=== PATIENT | female | born 1995 | race Caucasian/White ===

== ENCOUNTER → 2016-09-16 | Outpatient (CLI) | payer OTHER ==
[~2016-09-16] MED LIST: ACET-1311 PO; BCPILLS PO; DIPH-437 PO; HYDR-5688 PO; PANT40TA PO; PRENTAB26 PO; SULF800T23 PO
--- NOTE | 2016-09-16 15:14 | DIAGNOSTIC IMAGING REPORT ---
CT ANGIOGRAPHY OF THE CHEST, PULMONARY EMBOLUS PROTOCOL CLINICAL HISTORY: Dizziness. Tachycardia. COMPARISON STUDY: Chest CT August 18, 2011 and chest radiograph March 11, 2014. TECHNIQUE: Following IV administration of 94 mL of Optiray-320, helical axial images of the chest were obtained utilizing the pulmonary embolus protocol. Maximal intensity projections and sagittal and coronal reformats were viewed on an independent 3D workstation. IV contrast was administered without complication. CT DOSE: 386.86 mGy.cm FINDINGS: No pulmonary emboli are identified. The size of the heart is normal. There is no evidence for thoracic aortic dissection. No enlarged thoracic lymph nodes are present. Central airways are patent. There is no consolidation. Scattered pulmonary nodules are unchanged since a CT of August 18, 2011. The largest is a 5 mm right middle lobe nodule shown on image 138 of 278. 5 mm right lower lobe nodule on image 120 of 278 is also unchanged. There is no pneumothorax or pleural effusion. Bony thorax and upper abdomen are unremarkable. IMPRESSION: 1. No pulmonary emboli identified. 2. No acute intrathoracic findings. 3. Several pulmonary nodules which are unchanged since CT of August 18, 2011 consistent with a benign etiology. Electronically signed by: Kvng Dumont M.D. 09/16/2016 3:12 PM Dictated Date/Time: 09/16/2016 3:02 PM
== END | disposition home or self-care (01) ==
LOC: C.CTS 14:44
PROVIDERS: ATTEND Nurse Practitioner
DX: R42 Dizziness and giddiness (principal); R00.0 Tachycardia, unspecified; R91.8 Other nonspecific abnormal finding of lung field

== ENCOUNTER → 2016-09-16 | Outpatient (CLI) | payer OTHER ==
[2016-09-16 12:10] LABS: BASO % 0.2 %; BASO ABS # 0.02 K/uL (0-0.2); COMPLETE YES; EOS % 3.1 %; HEMATOCRIT 40.6 % (37-47); IG% 0.2 %; LYMPH % 32.1 %; LYMPH ABS # 3.09 K/uL (1.2-3.4); MEAN CORPUSCULAR HEMOGLOBIN 29.7 pg (25-34); MEAN CORPUSCULAR HGB CONC 34.5 g/dl (32-36); MONO % 5.5 %; NEUT % 58.9 %; PLATELET COUNT 335 K/uL (130-400); RED BLOOD COUNT 4.72 M/uL (4.2-5.4); WHITE BLOOD COUNT 9.64 K/uL (4.8-10.8)
[2016-09-16 12:17] LABS: MANUAL MICROSCOPIC REQUIRED? NO; REVIEW REQ? NO; URINE APPEARANCE CLEAR (CLEAR); URINE BILIRUBIN NEG (NEG); URINE COLOR YELLOW; URINE EPITHELIAL CELL AUTO >30 /lpf (0-5); URINE NITRITE NEG (NEG); URINE PH 6.5 (4.5-7.5); URINE SPECIFIC GRAVITY 1.028 (1.000-1.030); UROBILINOGEN NEG (NEG)
[2016-09-16 12:21] LABS: PROTHROMBIN TIME (PATIENT) 10.7 SECONDS (9.0-12.0)
[2016-09-16 14:09] LABS: PARTIAL THROMBOPLASTIN RATIO 1.2
[2016-09-16 19:17] LABS: ALB/GLOB RATIO 1.2 (0.9-2); ALKALINE PHOSPHATASE 85 U/L (45-117); ALT/SGPT 54 U/L (12-78); AST/SGOT 27 U/L (15-37); BLOOD UREA NITROGEN 9 mg/dl (7-18); BUN/CREATININE RATIO 9.8 (10-20); CALCIUM 9.3 mg/dl (8.5-10.1); CARBON DIOXIDE 27 mmol/L (21-32); CHLORIDE 107 mmol/L (98-107); CREATININE 0.88 mg/dl (0.60-1.20); FERRITIN 53.6 ng/ml (8.0-388.0); GLUCOSE 73 mg/dl (70-99); POTASSIUM 3.9 mmol/L (3.5-5.1); SODIUM 140 mmol/L (136-145); TOTAL IRON BINDING CAPACITY 414 mcg/dl (250-450)
[2016-09-16 19:21] LABS: THYROID STIMULATING HORMONE 0.765 uIu/ml (0.300-4.500)
== END | disposition home or self-care (01) ==
LOC: C.LABBFT 11:04
PROVIDERS: ATTEND Nurse Practitioner
DX: T14.8 Other injury of unspecified body region (principal); X58.XXXA Exposure to other specified factors, initial encounter; R53.83 Other fatigue

== ENCOUNTER 2016-11-05 21:01 | Emergency (ER) | payer OTHER ==
[~2016-11-05] VITALS: Ht 162.6 cm; Wt 97.4 kg
[~2016-11-05 21:01] MED LIST changes: -ACET-1311 PO; -BCPILLS PO; -HYDR-5688 PO; -PANT40TA PO; -SULF800T23 PO
[2016-11-05 21:14] VITALS: TEMP 36.7; Ht 162.6 cm; Wt 97.4 kg
[2016-11-05] MEDS ORDERED: ONDANSETRON INJ 2 MG/ML 2 ML VIAL IV STA (21:49)
[2016-11-05] MEDS ORDERED: MoRPHine SULFATE 4 MG/ML 1 ML CARP\\VIAL IV ONE (22:00)
[2016-11-05] MEDS ORDERED: SODIUM CHLORIDE 0.9% 1000ML 1,000 ML IV ONE (22:00)
[2016-11-05] MEDS ORDERED: OPTIRAY 320 IV PRN (22:00)
[2016-11-05 22:12] LABS: MANUAL MICROSCOPIC REQUIRED? YES; URINE APPEARANCE TURBID (CLEAR); URINE BILIRUBIN NEG (NEG); URINE COLOR RED; URINE NITRITE NEG (NEG); UROBILINOGEN NEG (NEG)
[2016-11-05 22:15] LABS: REVIEW REQ? NO
[2016-11-05 22:18] LABS: URINE BACTERIA 1+ (NEG); URINE RBC >30 /hpf (0-4); ZZUR CULT IF INDIC CLEAN CATCH YES
[2016-11-05 22:38] LABS: BASO % 0.4 %; BASO ABS # 0.03 K/uL (0-0.2); COMPLETE YES; EOS % 3.5 %; IG% 0.2 %; LYMPH % 45.1 %; LYMPH ABS # 3.61 K/uL (1.2-3.4); MEAN CORPUSCULAR HEMOGLOBIN 27.7 pg (25-34); MEAN CORPUSCULAR HGB CONC 32.2 g/dl (32-36); MEAN PLATELET VOLUME 8.9 fL (7.4-10.4); MONO % 4.6 %; NEUT % 46.2 %; PLATELET COUNT 357 K/uL (130-400); RED BLOOD COUNT 4.77 M/uL (4.2-5.4); WHITE BLOOD COUNT 8.01 K/uL (4.8-10.8)
[2016-11-05 22:57] LABS: BUN/CREATININE RATIO 19.3 (10-20); CREATININE 0.81 mg/dl (0.60-1.20); POTASSIUM 3.6 mmol/L (3.5-5.1)
[2016-11-05 23:00] LABS: ALB/GLOB RATIO 1.2 (0.9-2)
[2016-11-05 23:14] LABS: CALCIUM 8.8 mg/dl (8.5-10.1)
[2016-11-06] MEDS ORDERED: SULF800T23 PO (01:48)
[2016-11-06 01:51] VITALS: BP 99/78; PULSE 77; O2SAT 98
[2016-11-06] MEDS ORDERED: SEPTRA DS HOME PACK 1 EA VIAL PO ONE (02:00)
[2016-11-06] MEDS ORDERED: NORCO 5/325MG HOME PACK PO ONE (02:00)
--- NOTE | 2016-11-06 03:39 | EMERGENCY ROOM VISIT NOTE ---
History First contact with patient: 21:35 Chief Complaint: ABDOMINAL PAIN Stated Complaint: BLOOD IN URINE, INDIGESTION, BLOOD IN STOOL Nursing Triage Summary: abdominal pain, blood in stool and urine History of Present Illness The patient is a 21 year old female who presents to the Emergency Room with complaints of abdominal pain for the past 3 hours. The patient states that she has had a history of gastritis and peptic ulcer disease. She has had waxing and waning symptoms of this over the past few weeks. She ate a slice of pizza tonight, and immediately had epigastric and right upper quadrant abdominal pain. She did vomit once at home, which sometimes will help her when she has episodes like this. She states this vomiting did not help her symptoms, and now she has right lower quadrant pain as well. She has not had fever or chills. She does not take NSAIDs because of her peptic ulcer history, and thus has taken nothing for her discomfort. She denies chance of . Secondarily the patient reports hematuria for the past 3 or 4 days. She does have some dysuria with this. She rates her overall discomfort a 9/10. She does not report other aggravating or alleviating factors. Review of Systems More than 10 systems were reviewed and otherwise negative with the exception of history of present illness. Past Medical/Surgical History Medical Problems: (1) Abdominal cramping affecting , antepartum (2) dehydration in (3) Gastritis (4) Supervision of other normal Family History FH: hypertension FH: lung disease Social History Smoking Status: Current Every Day Smoker Alcohol Use: none Drug Use: none Marital Status: single Housing Status: lives with family Occupation Status: employed Current/Historical Medications Scheduled Sulfa/Trimethoprim (Bactrim Ds 800MG/160MG), 1 TAB PO BID Allergies Coded Allergies: Ibuprofen (Verified Adverse Reaction, Unknown, ulcer from, 04/09/16) Physical Exam Vital Signs Date Time Temp Pulse Resp B/P (MAP) Pulse Ox O2 Delivery O2 Flow Rate FiO2 11/06/16 01:51 77 18 99/78 98 Room Air 11/06/16 01:12 80 16 95/66 97 Room Air 11/05/16 23:11 86 18 110/67 97 Room Air 11/05/16 22:35 99 16 115/69 97 Room Air 11/05/16 21:33 111 11/05/16 21:29 107 11/05/16 21:14 36.7 18 111/70 96 Room Air Pain Rating (0-10): 5.0 Physical Exam VITALS: Vitals are noted on the nurse's note and reviewed by myself. Vital signs stable. GENERAL: Well-developed, well-nourished, white female, who is in no acute distress and resting comfortably. Patient is cooperative with the examination. HEAD: Normocephalic atraumatic. EARS: External ear normal. External auditory canals clear, tympanic membranes pearly nguyen without erythema or effusion bilaterally. EYES: Pupils equal round and reactive to light and accommodation. Conjunctivae without injection, sclerae without icterus. Extraocular movements intact. NOSE: Patent, turbinates without inflammation or discharge. MOUTH: Mucous membranes moist. Tonsils are not enlarged. Pharynx without erythema, blood, or exudate. Uvula midline. Airway patent. NECK: Supple without nuchal rigidity. No lymphadenopathy. No thyromegaly. Cervical spine is nontender. HEART: Regular rate and rhythm without murmurs gallops or rubs. LUNGS: Clear to auscultation bilaterally without wheezes, rales or rhonchi. No retractions or accessory muscle use. ABDOMEN: Positive normal bowel sounds x 4. Soft with right upper quadrant tenderness on palpation. There is mild right lower quadrant tenderness on palpation. No rebound or guarding. No CVA tenderness. MUSCULOSKELETAL: No muscle atrophy, erythema, or edema noted. Full range of motion without joint tenderness in all extremities. Medical Decision & Procedures ER Provider Diagnostic Interpretation: Preliminary Findings Only See Final Report For Complete Findings CT ABDOMEN & PELVIS: The liver, gallbladder, spleen, pancreas, adrenal glands and kidneys show no significant abnormality. The appendix is unremarkable. No dilated loops of bowel to suggest obstruction. Remainder of examination shows no acute inflammatory process. Preliminary Findings Only See Final Report For Complete Findings US RUQ: Increased echogenicity of the liver. Suggests fatty infiltration. Contracted gallbladder. No stones. No definite gallbladder wall thickening. No pericholecystic fluid. CBD is within normal limits. Right kidney is unremarkable. Technically limited due to overlying bowel gas. Laboratory Results 11/05/16 22:25 Red Blood Count 4.77, Mean Corpuscular Volume 86.0, Mean Corpuscular Hemoglobin 27.7, Mean Corpuscular Hemoglobin Concent 32.2, Mean Platelet Volume 8.9, Neutrophils (%) (Auto) 46.2, Lymphocytes (%) (Auto) 45.1, Monocytes (%) (Auto) 4.6, Eosinophils (%) (Auto) 3.5, Basophils (%) (Auto) 0.4, Neutrophils # (Auto) 3.70, Lymphocytes # (Auto) 3.61, Monocytes # (Auto) 0.37, Eosinophils # (Auto) 0.28, Basophils # (Auto) 0.03 11/05/16 22:25 Test 11/05/16 21:27 11/05/16 22:25 Urine Color RED Urine Appearance TURBID (CLEAR) Urine pH 7.0 (4.5-7.5) Urine Specific [place] 1.020 (1.000-1.030) Urine Protein 1+ (NEG) Urine Glucose (UA) NEG (NEG) Urine Ketones NEG (NEG) Urine Occult Blood 2+ (NEG) Urine Nitrite NEG (NEG) Urine Bilirubin NEG (NEG) Urine Urobilinogen NEG (NEG) Urine Leukocyte Esterase NEG (NEG) Urine RBC >30 /hpf (0-4) Urine WBC 10-30 /hpf (0-5) Urine Epithelial Cells >30 /lpf (0-5) Urine Bacteria 1+ (NEG) Urine Test NEG (NEG) White Blood Count 8.01 K/uL (4.8-10.8) Red Blood Count 4.77 M/uL (4.2-5.4) Hemoglobin 13.2 g/dL (12.0-16.0) Hematocrit 41.0 % (37-47) Mean Corpuscular Volume 86.0 fL (80-100) Mean Corpuscular Hemoglobin 27.7 pg (25-34) Mean Corpuscular Hemoglobin Concent 32.2 g/dl (32-36) Platelet Count 357 K/uL (130-400) Mean Platelet Volume 8.9 fL (7.4-10.4) Neutrophils (%) (Auto) 46.2 % Lymphocytes (%) (Auto) 45.1 % Monocytes (%) (Auto) 4.6 % Eosinophils (%) (Auto) 3.5 % Basophils (%) (Auto) 0.4 % Neutrophils # (Auto) 3.70 K/uL (1.4-6.5) Lymphocytes # (Auto) 3.61 K/uL (1.2-3.4) Monocytes # (Auto) 0.37 K/uL (0.11-0.59) Eosinophils # (Auto) 0.28 K/uL (0-0.5) Basophils # (Auto) 0.03 K/uL (0-0.2) RDW Standard Deviation 40.5 fL (36.4-46.3) RDW Coefficient of Variation 12.9 % (11.5-14.5) Immature Granulocyte % (Auto) 0.2 % Immature Granulocyte # (Auto) 0.02 K/uL (0.00-0.02) Anion Gap 10.0 mmol/L (3-11) Est Creatinine Clear Calc Drug Dose 123.5 ml/min Estimated GFR () 119.5 Estimated GFR (Non- 103.1 BUN/Creatinine Ratio 19.3 (10-20) Calcium Level 8.8 mg/dl (8.5-10.1) Total Bilirubin 0.3 mg/dl (0.2-1) Aspartate Amino Transf (AST/SGOT) 17 U/L (15-37) Alanine Aminotransferase (ALT/SGPT) 35 U/L (12-78) Alkaline Phosphatase 70 U/L (45-117) Total Protein 7.1 gm/dl (6.4-8.2) Albumin 3.8 gm/dl (3.4-5.0) Globulin 3.3 gm/dl (2.5-4.0) Albumin/Globulin Ratio 1.2 (0.9-2) Lipase 135 U/L (73-393) Medications Administered Medications (Trade) Dose Ordered Sig/Emre Route Start Time Stop Time Status Last Admin Dose Admin Sodium Chloride 1,000 ml @ 999 mls/hr Q1H1M ONCE IV 11/05/16 22:00 11/05/16 23:00 DC 11/05/16 22:26 999 MLS/HR Morphine Sulfate (MoRPHine SULFATE INJ) 4 mg NOW ONCE IV 11/05/16 22:00 11/05/16 22:01 DC 11/05/16 22:29 4 MG Ondansetron HCl (Zofran Inj) 4 mg NOW STAT IV 11/05/16 21:49 11/05/16 21:50 DC 11/05/16 22:29 4 MG Acetaminophen/ Hydrocodone Bitart ([place] 5/325mg Home Pack) 1 homepack UD ONCE PO 11/06/16 02:00 11/06/16 02:01 DC 11/06/16 02:01 1 HOMEPACK Trimethoprim/ Sulfamethoxazole (Sulfameth/ Trimeth Ds 800/ 160MG Home Pack) 1 homepack UD ONCE PO 11/06/16 02:00 11/06/16 02:01 DC 11/06/16 02:01 1 HOMEPACK ED Course Physical exam and history were performed. Nursing notes and EMR were reviewed. Patient appears to have right-sided abdominal pain for the past few hours. This episode appears to have been worsened after eating pizza, but she also has some right lower quadrant tenderness. IV access was established and labs were obtained. The patient was hydrated and medicated as above. Ultrasound of the right upper quadrant was performed. The patient was prepped for a contrast CT study. The patient's blood work is as above and was reviewed. She does not have a significantly elevated white blood cell count, anemia, bandemia, or significant electrolyte imbalance. Lipase and transaminases are nondiagnostic. Urine is with hematuria and suggestion of infection. The patient's ultrasound did not show acute obvious finding to explain her symptoms, and thus we did perform a CT scan of the abdomen and pelvis with IV and oral contrast. This did not show an acute surgical abdomen or other explanation for the patient's discomfort. Overall the patient did have significant improvement of her symptoms after the above interventions. She certainly could have biliary colic as one of the primary causes of her pain. She may also have a hemorrhagic cystitis and possible early on, kidney pyelonephritis. Because of this I will give the patient a course of Bactrim and a home pack of Vicodin. I feel that she will need close follow-up by her primary care physician for further care and management. She was invited back to the emergency department with any new, worsening, or concerning symptoms, and was pleased with plan of care. The chart was completed utilizing [employer] Voice Recognition Software. Grammatical errors, random word insertions, pronoun errors, and incomplete sentences are an occasional consequence of this system due to software limitations, ambient noise, and hardware issues. Any formal questions or concerns about the content, text, or information contained within the body of this dictation should be directly addressed to the provider for clarification. . Medical Decision Differential diagnosis: Etiologies such as appendicitis, diverticulitis, PUD, biliary pathology, UTI, pancreatitis, obstruction, mesenteric ischemia, aortic pathology, infections, inflammatory bowel disease, renal colic, as well as others were entertained. [facility] Monitoring Program Search Results: no issues identified Impression Primary Impression: Hemorrhagic cystitis Additional Impression: Abdominal pain Departure Information Dispostion Home / Self-Care Condition FAIR Prescriptions Sulfa/Trimethoprim (Bactrim Ds 800MG/160MG) Tab 1 TAB PO BID for 9 Days, #18 TAB Prov: Prasad Leblanc PA-C 11/06/16 Forms HOME CARE DOCUMENTATION FORM, IMPORTANT VISIT INFORMATION Patient Instructions My [facility] Additional Instructions You were seen and evaluated today on an emergency basis only. This is not a substitute for, or an effort to provide, complete comprehensive medical care. It is not possible to recognize and treat all injuries or illnesses in a single emergency department visit. For this reason it is recommended that you followup with your primary care physician the next 2-3 days for recheck of your condition. [place] (hydrocodone/acetaminophen) 5/325 mg (homepack) every 6 hours as needed for worsening breakthrough pain. Do not drink or drive on [place]. This medication will likely make you tired. Do not take [place] and Tylenol at the same time as both contain acetaminophen. [place] may cause constipation. You may wish to take an [id number] stool softener like Colace if this occurs. Trimethoprim-Sulfamethoxazole(Bactrim DS): Take one pill twice daily for 10 days for your infection. All antibiotics can cause diarrhea. If this occurs and you feel worse or it does not resolve in 1-2 days follow up with your doctor or return to the Emergency Department as this could be signs of serious underlying problems. Any medication can cause an allergic reaction, stop the pills immediately and return to the ER for rash, hives, breathing difficulties, or swelling. You are welcome to return to the emergency department anytime with new, worsening, or concerning symptoms. Problem Qualifiers
--- NOTE | 2016-11-06 07:24 | DIAGNOSTIC IMAGING REPORT ---
ABDOMEN AND PELVIS CT WITH IV AND ORAL CONTRAST CT DOSE: 892.03 mGy.cm HISTORY: Right side abd pain TECHNIQUE: Multiaxial CT images of the abdomen and pelvis were performed following the use of intravenous and oral contrast. COMPARISON STUDY: Abdomen and pelvis CT 05/02/2016. FINDINGS: A few bibasilar subcentimeter pulmonary nodules which remain stable. The liver, gallbladder, pancreas, spleen, adrenal glands, and kidneys are unremarkable. The bladder is not well-distended but appears unremarkable. The uterus and bilateral ovaries are within normal limits. No bowel wall thickening or obstruction. Normal appendix. IMPRESSION: 1. No bowel wall thickening or obstruction. 2. Normal appendix. 3. No ureteral stones or hydronephrosis. Electronically signed by: Leoncio Sorenson M.D. 11/06/2016 7:23 AM Dictated Date/Time: 11/06/2016 7:20 AM
--- NOTE | 2016-11-06 08:05 | DIAGNOSTIC IMAGING REPORT ---
ABDOMINAL ULTRASOUND, RIGHT UPPER QUADRANT HISTORY: Right side abd pain. COMPARISON: Abdomen and pelvis CT 05/02/2016. Abdominal ultrasound 12/14/2013. FINDINGS: Pancreas: Obscured by overlying bowel gas. Liver: Unremarkable. Gallbladder: No gallbladder wall thickening. No gallstones. CBD: 4 mm. Right kidney: No hydronephrosis. IMPRESSION: 1. Normal gallbladder. No gallstones. 2. The pancreas was obscured by overlying bowel gas. Electronically signed by: Leoncio Sorenson M.D. 11/06/2016 8:04 AM Dictated Date/Time: 11/06/2016 8:02 AM
[2016-11-07] MEDS ORDERED: ACET-1311 PO (20:42)
[2016-11-07] MEDS ORDERED: BCPILLS PO (20:42)
[2016-11-07] MEDS ORDERED: HYDR-5688 PO (20:43)
== END 2016-11-06 02:00 | disposition home or self-care (01) ==
LOC: C.EDB 21:02 → C.EDA 11-06 02:00
DX: N30.90 Cystitis, unspecified without hematuria (principal); R10.31 Right lower quadrant pain; K29.70 Gastritis, unspecified, without bleeding; Z82.49 Family history of ischemic heart disease and other diseases of the circulatory system; Z83.6 Family history of other diseases of the respiratory system; F17.210 Nicotine dependence, cigarettes, uncomplicated

== ENCOUNTER 2016-11-07 17:16 | Emergency (ER) | payer OTHER ==
[~2016-11-07] VITALS: Ht 162.6 cm; Wt 97.9 kg
[~2016-11-07 17:16] MED LIST changes: -ACET-1311 PO; -BCPILLS PO; -HYDR-5688 PO; -PANT40TA PO
[2016-11-07 17:34] VITALS: TEMP 36.7; Ht 162.6 cm; Wt 97.9 kg
[2016-11-07] MEDS ORDERED: ACET-1311 PO (20:42)
[2016-11-07] MEDS ORDERED: BCPILLS PO (20:42)
[2016-11-07] MEDS ORDERED: HYDR-5688 PO (20:43)
[2016-11-07] MEDS ORDERED: KETOROLAC TROMETHAMINE 30 MG/ML VIAL IV STA (20:57)
[2016-11-07] MEDS ORDERED: SODIUM CHLORIDE 0.9% 1000ML 1,000 ML IV STA (20:57)
[2016-11-07 21:55] LABS: URINE APPEARANCE TURBID (CLEAR); URINE BILIRUBIN NEG (NEG); URINE COLOR RED; URINE EPITHELIAL CELL AUTO 20-30 /lpf (0-5); URINE NITRITE NEG (NEG); URINE SPECIFIC GRAVITY 1.024 (1.000-1.030); UROBILINOGEN NEG (NEG)
[2016-11-07 21:58] LABS: MANUAL MICROSCOPIC REQUIRED? NO; REVIEW REQ? NO
[2016-11-07 22:23] LABS: CREATININE 0.79 mg/dl (0.60-1.20); POTASSIUM 3.8 mmol/L (3.5-5.1)
[2016-11-07 22:27] LABS: BASO % 0.3 %; BASO ABS # 0.03 K/uL (0-0.2); COMPLETE YES; EOS % 3.2 %; HEMATOCRIT 39.7 % (37-47); IG% 0.2 %; LYMPH % 46.1 %; LYMPH ABS # 4.22 K/uL (1.2-3.4); MEAN CELL VOLUME 85.6 fL (80-100); MEAN CORPUSCULAR HEMOGLOBIN 27.8 pg (25-34); MEAN CORPUSCULAR HGB CONC 32.5 g/dl (32-36); MEAN PLATELET VOLUME 8.8 fL (7.4-10.4); MONO % 6.1 %; NEUT % 44.1 %; PLATELET COUNT 325 K/uL (130-400); RED BLOOD COUNT 4.64 M/uL (4.2-5.4); WHITE BLOOD COUNT 9.16 K/uL (4.8-10.8)
[2016-11-07] MEDS ORDERED: ACETAMINOPHEN IV 1,000 MG in EMPTY BAG 0 ML IV STA (22:43)
[2016-11-07 22:44] LABS: CALCIUM 8.6 mg/dl (8.5-10.1)
--- NOTE | 2016-11-07 22:46 | DIAGNOSTIC IMAGING REPORT ---
CT OF THE ABDOMEN AND PELVIS WITHOUT CONTRAST, STONE PROTOCOL CLINICAL HISTORY: Flank pain and hematuria. Evaluate for stone. COMPARISON STUDY: CT of the abdomen and pelvis November 06, 2016. TECHNIQUE: Helical axial images of the abdomen and pelvis were obtained without IV or oral contrast according to renal stone protocol. FINDINGS: Note is made of contrast within the colon and rectum from recent contrast-enhanced CT. The appendix is filled with contrast and is within normal limits. Unenhanced images of liver, spleen, adrenal glands and pancreas are normal. There are no renal calculi. The course of the ureters is difficult to follow on this exam but pelvic calcifications likely reflect phleboliths. No convincing ureteral calculi are identified. There is no hydronephrosis or hydroureter. There is no evidence for a bowel obstruction. There is no lymphadenopathy. Skeletal structures are unremarkable. IMPRESSION: 1. No renal calculi or hydronephrosis. The course of the ureters is difficult to follow on this exam but pelvic calcifications likely reflect phleboliths. No ureteral calculi identified. 2. No acute process within the abdomen or pelvis on unenhanced exam. Electronically signed by: Kvng Dumont M.D. 11/07/2016 10:44 PM Dictated Date/Time: 11/07/2016 10:32 PM
[2016-11-07] MEDS ORDERED: ACETAMINOPHEN 1000 MG/100 ML IV IV ONE (22:51)
--- NOTE | 2016-11-07 23:18 | EMERGENCY ROOM VISIT NOTE ---
History First contact with patient: 20:01 Chief Complaint: HEMATURIA Stated Complaint: HEAMTURIA, ABDOMINAL AND BACK PAIN- PHYSICIAN REF Nursing Triage Summary: C/O blood in urine with dysuria. Moderate-Severe pain to pelvis, abdomen & flanks. Taking Tylenol & Oxycodone as prescribed without much relief. Reports nausea & lack of appetite. Denies vomitting. Denies diarrhea. Denies fever. Taking abx for suspected UTI- PCP contacted patient today to report culture of urine & was told to stop taking abx. Was told by PCP if pain increased or blood in urine was concerning to come to ED to be evaluated. History of Present Illness The patient is a 21 year old female who presents to the Emergency Room with complaints of right flank pain and hematuria for the past 3 days. Patient was seen in this ED 2 days ago for the same symptoms, had workup including labs, urinalysis, gallbladder ultrasound and CT of the abdomen/pelvis, patient states "they told me it was probably a UTI and put me on antibiotics." Patient was started on Bactrim, she states she has been taking this and has had 3 doses. She had follow-up with her PCP today who reviewed her urine culture and told her it was negative and told her to stop the Bactrim. Due to her persistent flank pain and blood in the urine, her PCP referred her back to the ER for further evaluation to rule out kidney stones. Patient denies fever/chills, chest pain, shortness of breath, palpitations, diarrhea, nausea/vomiting, constipation, dysuria. She states she is certain the blood is not coming from her vagina. Last menstrual period 2 weeks ago. Review of Systems A complete 10 point review of systems was reviewed with the patient with pertinent positives and negatives as per history of present illness. All else were negative. Past Medical/Surgical History Medical Problems: (1) Abdominal cramping affecting , antepartum (2) dehydration in (3) Gastritis (4) Supervision of other normal Family History FH: hypertension FH: lung disease Social History Smoking Status: Current Every Day Smoker Alcohol Use: none Drug Use: none Marital Status: single Housing Status: lives with family Occupation Status: employed Current/Historical Medications Scheduled Acetaminophen (Tylenol), 325 MG PO DAILY Control Pills ( Control Pills), 1 TAB PO DAILY Sulfa/Trimethoprim (Bactrim Ds 800MG/160MG), 1 TAB PO BID Scheduled PRN Hydrocodone/Acetaminophen 5MG/325MG ([place] 5MG/325MG), 1 TABLET PO Q6H PRN for Pain Allergies Coded Allergies: Ibuprofen (Verified Adverse Reaction, Unknown, ulcer from, 11/07/16) Physical Exam Vital Signs Date Time Temp Pulse Resp B/P (MAP) Pulse Ox O2 Delivery O2 Flow Rate FiO2 11/07/16 23:51 84 18 98/61 97 Room Air 11/07/16 22:02 71 18 113/70 97 Room Air 11/07/16 20:41 64 18 110/57 98 Room Air 11/07/16 17:34 36.7 87 16 108/70 97 Room Air Physical Exam CONSTITUTIONAL: No acute distress. Nontoxic-appearing. Well appearing and well nourished. Alert and oriented X 4 with normal affect. HEENT: Normocephalic, atraumatic. Pupils equal, round and reactive to light, EOMI. TMs normal. Pharynx normal. NECK: Supple, full active range of motion without discomfort. RESPIRATORY: Clear to auscultation bilaterally with no wheezing, crackles, rhonchi or stridor. Equal expansion bilaterally. CARDIOVASCULAR: Regular rate and rhythm with no murmurs, rubs or gallops. Normal peripheral perfusion. No edema. GASTROINTESTINAL: Moderate tenderness of the right upper and lower quadrant and right flank. Negative Concepcion's. Negative McBurney's. Positive right CVA tenderness. Negative rebound, negative guarding. Soft, nondistended. Bowel sounds present in all quadrants. GENITOURINARY: Bimanual vaginal exam performed, no blood noted within the vaginal canal. MUSCULOSKELETAL: Full range of motion of all joints without discomfort. INTEGUMENTARY: No rash or other significant dermatologic conditions noted. NEUROLOGIC: Cranial nerves II-XII grossly intact. No focal neurologic deficits noted. Medical Decision & Procedures ER Provider Diagnostic Interpretation: CT OF THE ABDOMEN AND PELVIS WITHOUT CONTRAST, STONE PROTOCOL CLINICAL HISTORY: Flank pain and hematuria. Evaluate for stone. COMPARISON STUDY: CT of the abdomen and pelvis November 06, 2016. TECHNIQUE: Helical axial images of the abdomen and pelvis were obtained without IV or oral contrast according to renal stone protocol. FINDINGS: Note is made of contrast within the colon and rectum from recent contrast-enhanced CT. The appendix is filled with contrast and is within normal limits. Unenhanced images of liver, spleen, adrenal glands and pancreas are normal. There are no renal calculi. The course of the ureters is difficult to follow on this exam but pelvic calcifications likely reflect phleboliths. No convincing ureteral calculi are identified. There is no hydronephrosis or hydroureter. There is no evidence for a bowel obstruction. There is no lymphadenopathy. Skeletal structures are unremarkable. IMPRESSION: 1. No renal calculi or hydronephrosis. The course of the ureters is difficult to follow on this exam but pelvic calcifications likely reflect phleboliths. No ureteral calculi identified. 2. No acute process within the abdomen or pelvis on unenhanced exam. Laboratory Results 11/07/16 21:45 Red Blood Count 4.64, Mean Corpuscular Volume 85.6, Mean Corpuscular Hemoglobin 27.8, Mean Corpuscular Hemoglobin Concent 32.5, Mean Platelet Volume 8.8, Neutrophils (%) (Auto) 44.1, Lymphocytes (%) (Auto) 46.1, Monocytes (%) (Auto) 6.1, Eosinophils (%) (Auto) 3.2, Basophils (%) (Auto) 0.3, Neutrophils # (Auto) 4.04, Lymphocytes # (Auto) 4.22, Monocytes # (Auto) 0.56, Eosinophils # (Auto) 0.29, Basophils # (Auto) 0.03 11/07/16 21:45 Test 11/07/16 00:00 11/07/16 21:45 Urine Color RED Urine Appearance TURBID (CLEAR) Urine pH 6.0 (4.5-7.5) Urine Specific [place] 1.024 (1.000-1.030) Urine Protein TRACE (NEG) Urine Glucose (UA) NEG (NEG) Urine Ketones NEG (NEG) Urine Occult Blood 3+ (NEG) Urine Nitrite NEG (NEG) Urine Bilirubin NEG (NEG) Urine Urobilinogen NEG (NEG) Urine Leukocyte Esterase SMALL (NEG) Urine WBC (Auto) 5-10 /hpf (0-5) Urine RBC (Auto) >30 /hpf (0-4) Urine Hyaline Casts (Auto) 1-5 /lpf (0-5) Urine Epithelial Cells (Auto) 20-30 /lpf (0-5) Urine Bacteria (Auto) NEG (NEG) White Blood Count 9.16 K/uL (4.8-10.8) Red Blood Count 4.64 M/uL (4.2-5.4) Hemoglobin 12.9 g/dL (12.0-16.0) Hematocrit 39.7 % (37-47) Mean Corpuscular Volume 85.6 fL (80-100) Mean Corpuscular Hemoglobin 27.8 pg (25-34) Mean Corpuscular Hemoglobin Concent 32.5 g/dl (32-36) Platelet Count 325 K/uL (130-400) Mean Platelet Volume 8.8 fL (7.4-10.4) Neutrophils (%) (Auto) 44.1 % Lymphocytes (%) (Auto) 46.1 % Monocytes (%) (Auto) 6.1 % Eosinophils (%) (Auto) 3.2 % Basophils (%) (Auto) 0.3 % Neutrophils # (Auto) 4.04 K/uL (1.4-6.5) Lymphocytes # (Auto) 4.22 K/uL (1.2-3.4) Monocytes # (Auto) 0.56 K/uL (0.11-0.59) Eosinophils # (Auto) 0.29 K/uL (0-0.5) Basophils # (Auto) 0.03 K/uL (0-0.2) RDW Standard Deviation 39.6 fL (36.4-46.3) RDW Coefficient of Variation 12.7 % (11.5-14.5) Immature Granulocyte % (Auto) 0.2 % Immature Granulocyte # (Auto) 0.02 K/uL (0.00-0.02) Anion Gap 9.0 mmol/L (3-11) Est Creatinine Clear Calc Drug Dose 127.0 ml/min Estimated GFR () 123.2 Estimated GFR (Non- 106.3 BUN/Creatinine Ratio 13.0 (10-20) Calcium Level 8.6 mg/dl (8.5-10.1) Medications Administered Medications (Trade) Dose Ordered Sig/Emre Route Start Time Stop Time Status Last Admin Dose Admin Sodium Chloride 1,000 ml @ 999 mls/hr Q1H1M STAT IV 11/07/16 20:57 11/07/16 21:57 DC 11/07/16 22:01 999 MLS/HR Ketorolac Tromethamine (Toradol Inj) 15 mg NOW STAT IV 11/07/16 20:57 11/07/16 21:00 DC 11/07/16 22:01 15 MG Acetaminophen (Ofirmev Iv) 1,000 mg STK-MED ONCE IV 11/07/16 22:51 11/07/16 22:52 DC 11/07/16 22:54 1,000 MG Medical Decision CC: Patient presenting with complaint of hematuria and right flank pain for the past 2-3 days Interpretation of Labs: No leukocytosis, no anemia, normal electrolytes, normal renal function, normal liver enzymes and lipase. Urinalysis shows gross hematuria without significant evidence for infection. Review of urine culture shows this is negative for true infection. Differential Diagnosis: Includes, but not limited to UTI, cystitis, pyelonephritis, renal colic, ureteral calculus, obstructing stone Medication Reconciliation: I attest that I have personally reviewed the patient' s current medication list. Vital signs review: I reviewed the patient's vital signs and interpret them as follows: T: Afebrile; BP: Normotensive; HR: WNL; RR: WNL; Pulse Ox: WNL on RA. Blood pressure screening: The patient was found to have normal blood pressure on screening and does not require follow-up for repeat blood pressure check. Summary: Patient was evaluated at bedside, history of physical exam performed. Patient alert and oriented, no acute distress and nontoxic-appearing. She has right flank pain to palpation. She has gross hematuria on UA. Given her previous workup with contrast-enhanced CT, we'll repeat CT today without contrast to fully evaluate for possible kidney stone. Patient also treated with IV fluids, IV Toradol and Tylenol. Patient discussed with Dr. Brunson, who agrees with my assessment and plan. Labs reviewed as above, unremarkable with exception of gross hematuria. Urine culture from her previous visit was reviewed and is noted to be negative. Patient states her PCP already told her to stop taking the Bactrim, and I concur. CT, no acute findings, specifically no ureteral stone. Pelvic exam was performed, no evidence of bloody drainage from the vaginal canal , confirming most likely source is urethral. Patient reassessed multiple times throughout ED stay, her pain is improved after medications and fluids. Patient does have prescription [place] at home to manage her severe pain, I encouraged her to continue using this as needed and follow up with her PCP. Patient was also provided with urology contact information and instructed to call for an appointment to follow up for further evaluation of her hematuria. Impression Primary Impression: Hematuria Additional Impression: Right flank pain Departure Information Dispostion Home / Self-Care Condition GOOD Referrals Medina Metcalf C.R.N.P. (PCP) Arias Woods M.D. Patient Instructions ED Flank Pain Uncertain Cause, ED Hematuria, My [facility] Additional Instructions You have been treated in the Emergency Department your Abdominal Pain. Laboratory results and imaging studies have ruled out any emergent causes for your abdominal pain which would warrant admission or surgery. Continue to take your prescribed [place] as needed for severe pain. Remember that this is a narcotic medication. You cannot drive or consume alcohol while on this medicine. This medicine should only be used for pain that cannot be controlled with [id number] pain medicines. For additional pain control, you can use the following [id number] medicines (if >12 yo): - Regular strength (325mg/tab) Tylenol (acetaminophen) 2 tabs every 4-6 hours as needed. Do not exceed 12 tablets in a 24 hour period. Avoid taking more than 4 grams (4000 mg) of Tylenol per day. This includes any other sources of acetaminophen you may take on a regular basis. - Regular strength (200 mg/tab) Advil (ibuprofen) 3 tabs every 6-8 hours as needed. Do not exceed a dose of 3200 mg per day. Drink plenty of water and stay well hydrated. You may also consider drinking cranberry juice. As with any trip to the Emergency Department, you should follow-up with your Primary Care Provider from today's visit. You should follow up with urology regarding your hematuria (blood in the urine) for further evaluation and management. Call for an appointment. Return to the emergency department if your symptoms persist despite treatment plan outlined above or if the following symptoms occur: increased fevers, chills , worsening nausea/vomiting, or if you are unable to urinate for > 12 hours. Problem Qualifiers
--- NOTE | 2016-11-07 23:40 | EMERGENCY ROOM VISIT NOTE ---
History First contact with patient: 20:01 Chief Complaint: HEMATURIA Stated Complaint: HEAMTURIA, ABDOMINAL AND BACK PAIN- PHYSICIAN REF History of Present Illness The patient is a 21 year old female who presents to the Emergency Room with complaints of Past Medical/Surgical History Medical Problems: (1) Abdominal cramping affecting , antepartum (2) dehydration in (3) Gastritis (4) Supervision of other normal Family History FH: hypertension FH: lung disease Social History Smoking Status: Current Every Day Smoker Alcohol Use: none Drug Use: none Marital Status: single Housing Status: lives with family Occupation Status: employed Current/Historical Medications Scheduled Acetaminophen (Tylenol), 325 MG PO DAILY Control Pills ( Control Pills), 1 TAB PO DAILY Sulfa/Trimethoprim (Bactrim Ds 800MG/160MG), 1 TAB PO BID Scheduled PRN Hydrocodone/Acetaminophen 5MG/325MG ([place] 5MG/325MG), 1 TABLET PO Q6H PRN for Pain Allergies Coded Allergies: Ibuprofen (Verified Adverse Reaction, Unknown, ulcer from, 11/07/16) Physical Exam Vital Signs Date Time Temp Pulse Resp B/P (MAP) Pulse Ox O2 Delivery O2 Flow Rate FiO2 11/07/16 23:51 84 18 98/61 97 Room Air 11/07/16 22:02 71 18 113/70 97 Room Air 11/07/16 20:41 64 18 110/57 98 Room Air 11/07/16 17:34 36.7 87 16 108/70 97 Room Air Medical Decision & Procedures Laboratory Results 11/07/16 21:45 Red Blood Count 4.64, Mean Corpuscular Volume 85.6, Mean Corpuscular Hemoglobin 27.8, Mean Corpuscular Hemoglobin Concent 32.5, Mean Platelet Volume 8.8, Neutrophils (%) (Auto) 44.1, Lymphocytes (%) (Auto) 46.1, Monocytes (%) (Auto) 6.1, Eosinophils (%) (Auto) 3.2, Basophils (%) (Auto) 0.3, Neutrophils # (Auto) 4.04, Lymphocytes # (Auto) 4.22, Monocytes # (Auto) 0.56, Eosinophils # (Auto) 0.29, Basophils # (Auto) 0.03 11/07/16 21:45 Test 11/07/16 00:00 11/07/16 21:45 Urine Color RED Urine Appearance TURBID (CLEAR) Urine pH 6.0 (4.5-7.5) Urine Specific [place] 1.024 (1.000-1.030) Urine Protein TRACE (NEG) Urine Glucose (UA) NEG (NEG) Urine Ketones NEG (NEG) Urine Occult Blood 3+ (NEG) Urine Nitrite NEG (NEG) Urine Bilirubin NEG (NEG) Urine Urobilinogen NEG (NEG) Urine Leukocyte Esterase SMALL (NEG) Urine WBC (Auto) 5-10 /hpf (0-5) Urine RBC (Auto) >30 /hpf (0-4) Urine Hyaline Casts (Auto) 1-5 /lpf (0-5) Urine Epithelial Cells (Auto) 20-30 /lpf (0-5) Urine Bacteria (Auto) NEG (NEG) White Blood Count 9.16 K/uL (4.8-10.8) Red Blood Count 4.64 M/uL (4.2-5.4) Hemoglobin 12.9 g/dL (12.0-16.0) Hematocrit 39.7 % (37-47) Mean Corpuscular Volume 85.6 fL (80-100) Mean Corpuscular Hemoglobin 27.8 pg (25-34) Mean Corpuscular Hemoglobin Concent 32.5 g/dl (32-36) Platelet Count 325 K/uL (130-400) Mean Platelet Volume 8.8 fL (7.4-10.4) Neutrophils (%) (Auto) 44.1 % Lymphocytes (%) (Auto) 46.1 % Monocytes (%) (Auto) 6.1 % Eosinophils (%) (Auto) 3.2 % Basophils (%) (Auto) 0.3 % Neutrophils # (Auto) 4.04 K/uL (1.4-6.5) Lymphocytes # (Auto) 4.22 K/uL (1.2-3.4) Monocytes # (Auto) 0.56 K/uL (0.11-0.59) Eosinophils # (Auto) 0.29 K/uL (0-0.5) Basophils # (Auto) 0.03 K/uL (0-0.2) RDW Standard Deviation 39.6 fL (36.4-46.3) RDW Coefficient of Variation 12.7 % (11.5-14.5) Immature Granulocyte % (Auto) 0.2 % Immature Granulocyte # (Auto) 0.02 K/uL (0.00-0.02) Anion Gap 9.0 mmol/L (3-11) Est Creatinine Clear Calc Drug Dose 127.0 ml/min Estimated GFR () 123.2 Estimated GFR (Non- 106.3 BUN/Creatinine Ratio 13.0 (10-20) Calcium Level 8.6 mg/dl (8.5-10.1) Medications Administered Medications (Trade) Dose Ordered Sig/Emre Route Start Time Stop Time Status Last Admin Dose Admin Sodium Chloride 1,000 ml @ 999 mls/hr Q1H1M STAT IV 11/07/16 20:57 11/07/16 21:57 DC 11/07/16 22:01 999 MLS/HR Ketorolac Tromethamine (Toradol Inj) 15 mg NOW STAT IV 11/07/16 20:57 11/07/16 21:00 DC 11/07/16 22:01 15 MG Acetaminophen (Ofirmev Iv) 1,000 mg STK-MED ONCE IV 11/07/16 22:51 11/07/16 22:52 DC 11/07/16 22:54 1,000 MG Departure Information Referrals Medina Metcalf, C.R.N.P. (PCP) Patient Instructions My [facility]
[2016-11-07 23:51] VITALS: BP 98/61; PULSE 84; O2SAT 97
== END 2016-11-08 00:02 | disposition home or self-care (01) ==
LOC: C.EDB 17:18
DX: R31.9 Hematuria, unspecified (principal); R10.9 Unspecified abdominal pain; Z82.49 Family history of ischemic heart disease and other diseases of the circulatory system; F17.200 Nicotine dependence, unspecified, uncomplicated

== ENCOUNTER → 2016-11-07 | Outpatient (CLI) | payer OTHER ==
[~2016-11-07] MED LIST changes: +ACET-1311 PO; +BCPILLS PO; -DIPH-437 PO; +HYDR-5688 PO; +PANT40TA PO; -PRENTAB26 PO; +SULF800T23 PO
== END | disposition home or self-care (01) ==
LOC: C.LABSPEC 17:11
PROVIDERS: ATTEND Nurse Practitioner
DX: R39.9 Unspecified symptoms and signs involving the genitourinary system (principal)

== ENCOUNTER → 2016-11-12 | Outpatient (CLI) | payer OTHER ==
[~2016-11-12] MED LIST changes: +ACET-1311 PO; +BCPILLS PO; +HYDR-5688 PO; +PANT40TA PO
== END | disposition home or self-care (01) ==
LOC: C.PATHSPEC 17:35
PROVIDERS: ATTEND Nurse Practitioner
DX: R31.9 Hematuria, unspecified (principal)

== ENCOUNTER → 2016-11-18 | Outpatient (CLI) | payer OTHER ==
[~2016-11-18] MED LIST changes: -SULF800T23 PO
== END | disposition home or self-care (01) ==
LOC: C.PATHSPEC 17:19
PROVIDERS: ATTEND Nurse Practitioner Adult Health
DX: R31.0 Gross hematuria (principal)

== ENCOUNTER → 2016-11-19 | Outpatient (CLI) | payer OTHER ==
[2016-11-22 02:02] LABS: CHLAMYDIA TRACH RNA*** NOT DETECTED (NOT DETECTED); GC (NEIS GONORRHOEAE)RNA** NOT DETECTED (NOT DETECTED)
== END | disposition home or self-care (01) ==
LOC: C.LABBFT 10:33
PROVIDERS: ATTEND Nurse Practitioner
DX: R39.9 Unspecified symptoms and signs involving the genitourinary system (principal)

== ENCOUNTER → 2016-11-19 | Outpatient (CLI) | payer OTHER ==
--- NOTE | 2016-11-19 09:02 | DIAGNOSTIC IMAGING REPORT ---
ULTRASOUND OF THE PELVIS CLINICAL HISTORY: Right pelvic pain. COMPARISON STUDY: Pelvic CT dated 11/07/2016. TECHNIQUE: Real-time, grayscale, and color flow sonography of the pelvis is performed both transabdominally and endovaginally. Images are reviewed in the transverse and longitudinal planes. FINDINGS: Uterus: The uterus is normal in size and echotexture, measuring 6.5 x 3.7 x 4.8 cm. Endometrium: The endometrium is thickened but otherwise normal in appearance, measuring up to 1.6 cm. Ovaries: The ovaries are normal in size and morphology. The right ovary measures 4.0 x 3.7 x 3.4 cm and the left ovary measures 4.6 x 1.9 x 3.0 cm. There are numerous bilateral ovarian follicles. Normal Doppler waveforms are shown within both ovaries. Pelvis: There is trace free fluid in the cul-de-sac. No concerning adnexal lesion is seen. IMPRESSION: 1. No acute sonographic abnormality is identified in the pelvis. 2. The endometrial stripe is mildly thickened measuring up to 1.6 cm. This is likely related to the phase of the patient's cycle. 3. There is trace and likely physiologic free fluid in the cul-de-sac. Electronically signed by: Yamil Pizarro M.D. 11/19/2016 9:00 AM Dictated Date/Time: 11/19/2016 8:58 AM
== END | disposition home or self-care (01) ==
LOC: C.ULTR 08:19
PROVIDERS: ATTEND Nurse Practitioner Adult Health
DX: R10.31 Right lower quadrant pain (principal); R31.0 Gross hematuria

== ENCOUNTER → 2016-11-28 | Outpatient (CLI) | payer OTHER ==
[~2016-11-28] MED LIST changes: +OPTIRAY 300 IV PRN
--- NOTE | 2016-11-28 14:10 | DIAGNOSTIC IMAGING REPORT ---
IV PYELOGRAM CLINICAL HISTORY: Flank pain and hematuria. COMPARISON STUDY: Abdominal CT dated 11/07/2016. TECHNIQUE: An abdominal adapted physical education specialist radiograph is performed. IVP pyelogram was then performed following the IV administration of approximately 100 cc of contrast, tomographic images are acquired in the corticomedullary and excretory phases of enhancement. Overhead views of the renal collecting system and bladder were obtained in multiple obliquities both pre and post void. FINDINGS: Abdominal adapted physical education specialist radiograph shows a nonobstructed abdominal bowel gas pattern. No abnormal abdominal calcifications are identified. Pelvic phleboliths are observed. The bony structures appear intact. Following contrast administration there is symmetric renal cortical enhancement and contrast excretion. No hydronephrosis is seen. There are no filling defects identified within the renal pelvis or along the course of the ureter bilaterally. The bladder is normal in appearance. No significant post void residual is identified. There is slightly delayed clearance of contrast from the renal pelvis bilaterally as seen on the extended delayed images. IMPRESSION: 1. There is no radiographic evidence of nephrolithiasis. 2. The kidneys enhance and excrete symmetrically. There is no hydronephrosis. 3. There is slightly delayed clearance of contrast from the renal pelvis seen bilaterally on the extended delayed images. This is of indeterminant clinical significance, if any. Electronically signed by: Yamil Pizarro M.D. 11/28/2016 2:08 PM Dictated Date/Time: 11/28/2016 2:06 PM
== END | disposition home or self-care (01) ==
LOC: C.RAD 12:36
PROVIDERS: ATTEND Urology
DX: N39.0 Urinary tract infection, site not specified (principal); R31.0 Gross hematuria

== ENCOUNTER → 2016-12-05 | Outpatient (CLI) | payer OTHER ==
[~2016-12-05] MED LIST changes: -OPTIRAY 300 IV PRN
[2016-12-09 10:08] LABS: CHLAMYDIA TRACH RNA*** NOT DETECTED (NOT DETECTED); GC (NEIS GONORRHOEAE)RNA** NOT DETECTED (NOT DETECTED)
== END | disposition home or self-care (01) ==
LOC: C.LABSPEC 12:21
PROVIDERS: ATTEND Nurse Practitioner
DX: R10.2 Pelvic and perineal pain (principal)

== ENCOUNTER → 2016-12-10 | Outpatient (CLI) | payer OTHER | END | disposition home or self-care (01) | LOC: C.LABSPEC 17:37 | PROVIDERS: ATTEND Physician Assistant | DX: N94.9 Unspecified condition associated with female genital organs and menstrual cycle (principal) ==

== ENCOUNTER → 2016-12-10 | Outpatient (CLI) | payer OTHER | END | disposition home or self-care (01) | LOC: C.PAPS 08:47 | PROVIDERS: ATTEND Physician Assistant | DX: N94.9 Unspecified condition associated with female genital organs and menstrual cycle (principal) ==

== ENCOUNTER 2016-12-12 18:42 | Emergency (ER) | payer OTHER ==
[~2016-12-12] VITALS: Ht 162.6 cm; Wt 99.5 kg
[~2016-12-12 18:42] MED LIST changes: -PANT40TA PO
[2016-12-12 18:44] VITALS: TEMP 37; Ht 162.6 cm; Wt 99.5 kg
[2016-12-12] MEDS ORDERED: PANT40TA PO (19:08)
--- NOTE | 2016-12-12 19:42 | EMERGENCY ROOM VISIT NOTE ---
ED Visit Note First contact with patient: 19:07 CHIEF COMPLAINT: Needlestick through cheek HISTORY OF PRESENT ILLNESS: This 21-year-old female patient presents to the emergency department cleaning of a needlestick through her left cheek approximately 2 hours prior to arrival. The patient states she was at [employer], eating chicken nuggets, when she bit into a chicken nugget and experienced a sharp program manager environmental planning the left cheek. The patient states when she spit up a chicken nugget, she found a small needle which was inside of the chicken. The patient reports minimal bleeding or pain. She states she is now experiencing some minimal numbness of the left cheek, however states she feels this is because she continues to bite her cheek in the area where the needlestick happened. The patient denies symptoms including fever, chills, discharge, redness, significant pain, or other associated symptoms. The patient is concerned for HIV or hepatitis C and would like to have lab work completed to alleviate her concerns. The patient is up-to-date on all immunizations, including hepatitis B and tetanus. REVIEW OF SYSTEMS: A 6-system review of systems was performed with positives and pertinent negatives listed in the history of present illness. All other systems were reviewed and are negative. ALLERGIES: Ibuprofen MEDICATIONS: Protonix PMH: GERD SOCIAL HISTORY: He lives locally with her family. She denies drug or alcohol use. The patient admits to smoking one half pack cigarettes per day. PHYSICAL EXAM: VITALS: Vitals are noted on the nurse's note and reviewed by myself. Vital signs stable. GENERAL: This is a 21-year-old female, in no acute distress, nondiaphoretic, well-developed well-nourished. HEAD: Normocephalic, atraumatic EYES: PERRLA. No icterus or conjunctival injection noted. NOSE: Nares patent. Turbinates not inflamed, no drainage noted. MOUTH: Mucous membranes moist. Small puncture wound on left cheek, no active bleeding or drainage noted. Tonsils not enlarged. Pharynx without erythema or exudate. Uvula midline. Airway patent. LYMPH: No lymphadenopathy. HEART: RRR, normal S1/S2. No S3/S4 noted. No murmurs, rubs, gallops. LUNGS: CTA bilaterally. No wheezes, rales, or rhonchi. EMERGENCY DEPARTMENT COURSE: The patient was evaluated as above. I did contact the PEP hotline. Their recommendation was that HIV transmission is a extremely low risk in this case. They feel that the risk of PEP medications strongly outweighs the benefit at this time. They didn't recommend hepatitis C and HIV testing. I did order baseline hepatitis B, HIV, and hepatitis C testing to be completed at this time. I discussed follow-up instructions with the patient, and encouraged her to follow up closely with her PCP. The patient was discharged home in good condition. DIFFERENTIAL DIAGNOSIS: Infection, puncture wound, hepatitis C infection, HIV infection, Hepatitis B infection, and others. DIAGNOSIS: Needlestick DISCHARGE INSTRUCTIONS & TREATMENT: As discussed in the ED, and based on the recommendation from the PEP hotline, your risk of HIV transmission through this needle stick is extremely small. We have drawn blood in the ED to get baseline labs for Hepatitis B, Hepatitis C , and HIV. You will need to have HIV testing repeated in 4-6 weeks, then again at 3 months. You will need to have Hepatitis C Antibodies re-checked in 6 months. Verify with your PCP that you have received the whole Hepatitis B vaccine series. The wound in your cheek should heal well without further intervention. For pain control, you can use the following dczt-tol-iivscyd medicines (if >12 yo): - Regular strength (325mg/tab) Tylenol (acetaminophen) 2 tabs every 4-6 hours as needed. Do not exceed 12 tablets in a 24 hour period. Avoid taking more than 4 grams (4000 mg) of Tylenol per day. This includes any other sources of acetaminophen you may take on a regular basis. - Regular strength (200 mg/tab) Advil (ibuprofen) 1-2 tabs every 4-6 hours as needed. Do not exceed a dose of 3200 mg per day. Please return to the emergency department for worsening symptoms or for nausea, vomiting, body aches, fever, chills, chest pains, shortness of breath, or other concerning symptoms. Please follow up closely with your primary care provider for further evaluation and testing. Problem List Medical Problems: (1) Abdominal cramping affecting , antepartum Status: Resolved (2) dehydration in Status: Resolved Current/Historical Medications Scheduled Pantoprazole (Protonix), 40 MG PO DAILY Allergies Coded Allergies: Ibuprofen (Verified Adverse Reaction, Unknown, ulcer from, 11/07/16) Vital Signs Date Time Temp Pulse Resp B/P (MAP) Pulse Ox O2 Delivery O2 Flow Rate FiO2 12/12/16 20:10 86 20 138/85 100 12/12/16 18:44 37.0 98 16 138/87 98 Laboratory Results Test 12/12/16 19:41 Hepatitis B Surface Antigen NEG (NEG) Hepatitis B Surface Antibody NEG Hepatitis C Antibody NEG (NEG) HIV (1&2) Ab and P24 Ag, 4th Gener NEG (NEG) Departure Information Impression Primary Impression: Needle stick injury Dispostion Home / Self-Care Condition GOOD Referrals Medina Metcalf, C.R.N.P. (PCP) Patient Instructions ED Wound Puncture General, [facility] Additional Instructions As discussed in the ED, and based on the recommendation from the PEP hotline, your risk of HIV transmission through this needle stick is extremely small. We have drawn blood in the ED to get baseline labs for Hepatitis B, Hepatitis C , and HIV. You will need to have HIV testing repeated in 4-6 weeks, then again at 3 months. You will need to have Hepatitis C Antibodies re-checked in 6 months. Verify with your PCP that you have received the whole Hepatitis B vaccine series. The wound in your cheek should heal well without further intervention. For pain control, you can use the following kejc-ruf-jsqosvh medicines (if >12 yo): - Regular strength (325mg/tab) Tylenol (acetaminophen) 2 tabs every 4-6 hours as needed. Do not exceed 12 tablets in a 24 hour period. Avoid taking more than 4 grams (4000 mg) of Tylenol per day. This includes any other sources of acetaminophen you may take on a regular basis. - Regular strength (200 mg/tab) Advil (ibuprofen) 1-2 tabs every 4-6 hours as needed. Do not exceed a dose of 3200 mg per day. Please return to the emergency department for worsening symptoms or for nausea, vomiting, body aches, fever, chills, chest pains, shortness of breath, or other concerning symptoms. Please follow up closely with your primary care provider for further evaluation and testing.
[2016-12-12 20:10] VITALS: BP 138/85; PULSE 86; O2SAT 100
[2016-12-12 21:34] LABS: HEPATITIS B AB NEG
== END 2016-12-12 20:11 | disposition home or self-care (01) ==
LOC: C.EDB 18:44 → C.EDD 20:11
DX: S00.502A Unspecified superficial injury of oral cavity, initial encounter (principal); W27.3XXA Contact with needle (sewing), initial encounter; Y93.89 Activity, other specified; Y99.8 Other external cause status; K21.9 Gastro-esophageal reflux disease without esophagitis; F17.210 Nicotine dependence, cigarettes, uncomplicated; Z79.899 Other long term (current) drug therapy

== ENCOUNTER 2019-09-17 15:26 | Observation (INO) ==
[2019-09-17] MEDS ORDERED: METHYLENE BLUE 0.5% 10 ML VIAL ONE ×2 (17:03→21:12)
[2019-09-17] MEDS ORDERED: LIDOCAINE 2% JELLY 5 ML TUBE ONE ×2 (17:23→21:41)
--- NOTE | 2019-09-17 17:46 | History & Physical Report ---
Date of Service September 17, 2019 Assessment & Plan (1) Vaginal discharge in in third trimester: Based on previous & current evaluation, I doubt that this is amniotic fluid. I suspect a vesicovaginal fistula even though she does not have a strong past obstetric history to support this diagnosis. Her history of gross hematuria of unknown etiology that started 8 months after delivery is suspicious for a urologic source of this leakage.I discussed her findings with Dr. Woods, he suggested sending a bodily fluid creatinine level. If the fluid is urine the creatinine will be elevated in the 30-100 range. This cannot be done in our lab but will be sent to [facility] for evaluation. Because it will be several days before the results are available, patient is agreeable to instillation of dilute methylene blue into the bladder. A sterile vaginal packing was placed high in the vagina. 60 cc of methylene blue & sterile water was infused into the bladder. Trujillo catheter was placed using sterile technique and then clamped after the methylene bue & sterile water was instilled into the bladder. Patient tolerated the procedure well. We will reassess in 30 minutes History of Present Illness Primary Care Provider: NO PCP Patient is a 23 yo white female EDC 11/22/19 who presents at 30w4d with ongoing leaking of a copious amount of vaginal fluid. She had presented initially to L&D on 09/16/19 complaining of a feeling a "pop" while straining to have a BM. the fluid has continued to leak in large amounts with trickling in between the bigger leaks. She was evaluated by Dr. Swartz last night for potential SPROM. all testing was negative for amniotic fluid at that time including 3 amnisures, ferning & nitrazine. there were large pockets of fluid on ultrasound at that time. She has continued to have leaking fluid vaginally, it is brown to pink tinged fluid. no urgency or burning with urination. no fever or chills. no contractions or tightening. She has had one full term delivery at 39 week 03/2019 that was uncomplicated, . No vaccuum or forceps were needed. She only pushed for a very short time. no problems with urination following her delivery. However, approximately 8 months after delivery she developed gross hematuria and was evaluated by Dr. Marks with cystoscopy CT scan & IVP and no abnormalities were found. She also saw Dr. Brizuela, for the possible diagnosis of nephritis. Dr. Brizuela felt this was not the etiology. After several months the hematuria stopped and she no further issues. there have been no contractions now during her re-evaluation here tonight. there is a reassuring heart rate tracing. Allergies Allergy/AdvReac Type Severity Reaction Status Date / Time No Known Allergies Allergy Unverified 09/17/19 09:02 Home Medications Home Medications Medication Instructions Recorded Confirmed Type buprenorphine HCl 8 mg sublingual 8 mg SL BID tab 04/16/19 09/17/19 History tablet prenat.vits,roney,qii-emmp-addco 1 tab PO DAILY 04/16/19 09/17/19 History albuterol sulfate 3 puffs INH Q6H PRN #8 gm 08/03/19 09/17/19 Rx ondansetron HCl [Zofran] 8 mg PO BID PRN 08/03/19 09/17/19 History cyanocobalamin (vitamin B-12) 250 mcg PO DAILY 09/16/19 09/17/19 History [Vitamin B-12] Patient History Medical History Abdominal pain (Inactive) Anemia Bruising Carpal tunnel syndrome Dehydration during Encounter for anatomic survey Hematuria (Inactive) Hematuria Hemorrhagic cystitis (Inactive) Hx of migraines Hx of varicella Needle stick injury Pap smear abnormality of cervix with LGSIL (~2015) non compliant f/u Right flank pain (Inactive) Stomach ulcer Supervision of other normal Tachycardia Surgical History S/P wisdom tooth extraction Family History Grandmother (Maternal) Lung cancer Hypertension Multiple kidney stones Unknown Gall bladder disease Mother Hypertension Multiple kidney stones Thyroid disease Denies family history of Colon cancer Ovarian cancer Prostate cancer Myocardial infarction Breast cancer Social History Preferred Language: [place]al[place] Communication Ability: Effective Beliefs That Will Affect Care: None marital status: Single marital status details: Cedric Reyes (24) [phone] Current Living Situation: Significant Other Current Living Situation Comment: lives with FOB and child, 3 dogs current occupational status: employed current occupation: [employer] Feels Safe at Home: Yes Smoking Status: Current every day smoker Tobacco Type: cigarettes ; packs per day: 0.5 ; Cigarettes Per Day: 2 ; Hx Alcohol Use: No Hx Substance Use: No Childhood Exposure to Second-Hand Smoke: Yes Dental Care, Regularly: Yes Physical Activity Frequency: 3-4 Times per Week Seatbelt Use: always Review of Systems All systems reviewed & are unremarkable except as noted in HPI & below Physical Exam Constitutional: WD/WN, vitals as above Gastrointestinal (Abdomen): normal bowel sounds, soft, nontender, no hepatosplenomegaly Psychiatric: A+Ox3, euthymic affect Genitourinary: OB Exam Abdomen: + fundal height (nontender &soft. c/w 30 weeks ) Fundus: not tender and + breech OB Exam Monitor Tracing: + external FHT monitor used, + external uterine monitor used, + category I and + normal FHT variability spec exam: cervix appears long thick & closed. large amount of blood tinged fluid in the vagina. no leaking from cervix with valsalva or coughing manuevers. amnisure is negative nitrazine is flash blue (fluid is blood tinged), + pooling , negative nitrazine. On ultrasound baby is in breech position with multiple large pockets of fluid noted on ultrasound. Results & Data Vital Signs (Past 12 Hours) Vital Signs Temp Pulse Resp BP 09/17/19 15:39 98.2 F 112 H 18 118/56 L 09/17/19 15:32 98.2 F 112 H 18 118/56 L Coding Level of Care Code 48692 OBS Care - Level 3 Diagnoses Vaginal discharge in in third trimester O26.893; N89.8
--- NOTE | 2019-09-17 21:29 | Obstetrical Progress Note ---
Date of Service September 17, 2019 Assessment & Plan (1) Vaginal discharge in in third trimester: Subjective vaginal packing was removed and there was no methylene blue on the vaginal packing. after the the hubbard catheter was removed, a sterile gauze was placed at the top to the vagina. Laurence then walked fo 30 minutes. there was 2 specks of methylene blue on the gauze. the gauze was also wet with clear fluid. another urobag was placed & the fluid collected was sweet colored. and was at least 20cc's collected. [facility] was contacted for possible transfer but they are not accepting any patients at this time. I called [facility] and talked to Dr. Destiny Westbrook with [facility] and she feels based on the current information that she is not ruptured. She suggested we repeat the methylene blue test and use a tampon vaginally this time. Patient is agreeable to trying this test again. I pamela confirm with that I did the procedure correctly first. Physical Exam Constitutional: WD/WN, vitals as above Psychiatric: A+Ox3, euthymic affect Genitourinary: OB Exam Monitor Tracing: + external FHT monitor used, + external uterine monitor used, + category I and + normal FHT variability Results & Data Vital Signs (Past 12 Hours) Vital Signs Temp Pulse Resp BP 09/17/19 19:10 98.2 F 75 18 91/53 L 09/17/19 15:39 98.2 F 112 H 18 118/56 L 09/17/19 15:32 98.2 F 112 H 18 118/56 L PG Care Time/CCT Total # of Minutes Spent Total Time Spent with Patient: Total time spent is greater than 50% in coordination of care (as documented) at patient's floor/unit and/or counseling patient: Coding Level of Care Code 88563 Subseq Obs Care Lvl 3 Diagnoses Vaginal discharge in in third trimester O26.893; N89.8
[2019-09-17 22:27] LABS: Appearance Urine Clear (Clear); Bilirubin Urine Negative (Negative); Blood Urine Negative (Negative); Color Urine Yellow; Glucose Urine UA Negative (Negative); Ketones Urine Negative (Negative); Leukocyte Esterase Urine Negative (Negative); Nitrite Urine Negative (Negative); Protein Urine Negative (Negative); Specific Gravity Urine 1.009 (1.000-1.030); Urobilinogen Urine Negative (Negative); pH Urine 7.5 (4.5-7.5)
--- NOTE | 2019-09-17 22:29 | Obstetrical Progress Note ---
Date of Service September 17, 2019 Subjective After discussion with ,patient placed a regular size tampon vaginally. After the hubbard catheter was placed in sterile fashion and Urine obtained for U?A , C&S, 180cc of methylene blue + sterile water was instilled in the bladder & clamped. Patient will now ambulate for the next 30 minutes & we will remove the tampon at that time. Results & Data Vital Signs (Past 12 Hours) Vital Signs Temp Pulse Resp BP 09/17/19 19:10 98.2 F 75 18 91/53 L 09/17/19 15:39 98.2 F 112 H 18 118/56 L 09/17/19 15:32 98.2 F 112 H 18 118/56 L PG Care Time/CCT Total # of Minutes Spent Total Time Spent with Patient: Total time spent is greater than 50% in coor dination of care (as documented) at patient's floor/unit and/or counseling patient: Coding Level of Care Code 49298 Subseq Obs Care Lvl 2
--- NOTE | 2019-09-17 23:11 | Obstetrical Progress Note ---
Date of Service September 17, 2019 Assessment & Plan (1) Vesicovaginal fistula: patient aware of diagnosis of vesico-vaginal fistula pending urine creatinine results. will refer to urology for follow up & surgery after delivery. will get formal ultrasound in the am to confirm normal DVP. Subjective after 1 hour, the hubbard catheter was removed. the tampon was removed and was noted to have methylene blue on the distal portion of the tampon only. Review of Systems Review of Systems: All systems reviewed & are unremarkable except as noted in HPI & below Physical Exam Constitutional: WD/WN, vitals as above Psychiatric: A+Ox3, euthymic affect hubbard catheter removed without difficulty. tampon removed without difficulty with blue dye on distal portion of tampon only. Results & Data Vital Signs (Past 12 Hours) Vital Signs Temp Pulse Resp BP 09/17/19 23:00 85 101/55 L 09/17/19 19:10 98.2 F 75 18 91/53 L 09/17/19 15:39 98.2 F 112 H 18 118/56 L 09/17/19 15:32 98.2 F 112 H 18 118/56 L PG Care Time/CCT Total # of Minutes Spent Total Time Spent with Patient: Total time spent is greater than 50% in coordination of care (as documented) at patient's floor/unit and/or counseling patient: Coding Level of Care Code 06764 Subseq Obs Care Lvl 2 Diagnoses Vesicovaginal fistula N82.0
[2019-09-18] MEDS ORDERED: OXYTOCIN 30 UNITS/500ML NSS ONE (04:01)
--- NOTE | 2019-09-18 06:51 | Ultrasound Report ---
US OB limited CLINICAL HISTORY: leaking fluid vaginally- check DVP. COMPARISON STUDY: ultrasound July 02, 2019. TECHNIQUE: Transabdominal sonography of the pelvis was performed. FINDINGS: Single viable intrauterine gestation with normal heart rate of 143 bpm. Presentation is breech. Cervix is closed, measuring 4.9 cm in length. Placenta is located anteriorly. No placental abnormalities are identified. Amniotic fluid index is 17.5 cm. The deepest pocket is 5.4 cm. Please note that a dedicated anatomical survey was not performed. The biparietal diameter measures 7.8 cm which corresponds to an estimated gestational age of 31 weeks and 3 days. Femur length measures 5 .5 cm which corresponds to an estimated gestational age of 29 weeks and 0 days. IMPRESSION: 1. Single viable intrauterine gestation. Normal heart rate. Breech presentation. 2. Amniotic fluid index of 17.5 cm. Deepest pocket 5.4 cm. 3. No placental abnormality. 4. Closed cervix, measuring 4.9 cm in length. ACT 112: Negative or not required by law. Electronically signed by: Kvng Dumont M.D. 09/18/2019 6:50 AM
--- NOTE | 2019-09-18 07:17 | Obstetrical Progress Note ---
Date of Service September 18, 2019 Assessment & Plan (1) Vesicovaginal fistula: DVP this morning is 5.4/ ROSI is 15.5 will discharge to home with instructions follow up in office for HUSEYIN + DVP will refer to urology for follow up Subjective no change in leakage. tends to get less after she voids. no dysuria, cramping or contractions discharge is clear to pink tinged baby active Review of Systems Review of Systems: All systems reviewed & are unremarkable except as noted in HPI & below Physical Exam Constitutional: WD/WN, vitals as above Psychiatric: A+Ox3, euthymic affect Genitourinary: OB Exam Abdomen: + fundal height (30 weeks-soft ) Fundus: not tender OB Exam Monitor Tracing: + external FHT monitor used, + external uterine monitor used and + category I no contractions. Results & Data Vital Signs (Past 12 Hours) Vital Signs Temp Pulse Resp BP 09/18/19 07:09 72 124/61 09/18/19 03:32 79 102/50 L 09/18/19 03:31 98.4 F 16 09/17/19 23:00 98.1 F 85 18 101/55 L PG Care Time/CCT Total # of Minutes Spent Total Time Spent with Patient: Total time spent is greater than 50% in coordination of care (as documented) at patient's floor/unit and/or counseling patient: Coding Level of Care Code 65186 Subseq Obs Care Lvl 2 Diagnoses Vesicovaginal fistula N82.0
--- NOTE | 2019-09-20 10:16 | Discharge Summary (DS) ---
DIAGNOSES: 30 weeks gestation, leaking vaginal fluid and vesicovaginal fistula. HISTORY AND HOSPITAL COURSE: The patient is a 23-year-old 2, para 1-0-0-1 white female, EDC of 11/22/2019 who presents at 30 weeks 4 days with ongoing leaking of a copious amount of vaginal fluid. She presented initially to labor and delivery on 09/16/2019 complaining of feeling a pop while straining to have a BM. Following this, there was a significant amount of fluid coming from the vagina. There were bigger gushes and then there was trickling in between. She was evaluated by Dr. Swartz that evening for possible rupture of membranes. All testing for amniotic fluid was negative including 3 AmniSures, ferning and Nitrazine. On ultrasound, there was noted to be large pockets of fluid also. She continued to leak fluid vaginally. It was brown to pink tinged. No burning or urgency with urination. No fever or chills. No contractions or cramping. Baby had good movement. Of note, she had 1 full-term vaginal delivery at 39 weeks, which was uncomplicated. There was no instrumentation done at the time of the delivery. She had bilateral sulcal tears with episiotomy, which were repaired in the usual fashion. She pushed for a very short time in labor and had no problems following her delivery. Eight months after delivery, she developed gross hematuria and was evaluated by Dr. Marks with cystoscopy, CT scan and IVP. Everything was negative. She is also complaining of right lower quadrant pain, which again the etiology has not been diagnosed. The hematuria and the right lower quadrant pain resolved spontaneously after approximately 3 months. She has had no other hematuria since then. She has not noted any contractions and she was reevaluated in the office on 09/16 and again the copious amount of vaginal fluid was noted. She was sent to labor and delivery for further evaluation. I confirmed that ferning was negative. Nitrazine was positive, but the fluid was blood tinged. AmniSures were also negative. Again, a bedside ultrasound revealed good pockets of amniotic fluid. After conversing with Dr. Woods and with Dr. Britney Westbrook at [facility], it was decided to see if this was coming from a vesicovaginal fistula. Methylene blue was placed into the bladder through a Trujillo catheter and clamped. A vaginal packing was placed. This revealed no methylene blue vaginally. The Trujillo catheter was removed at that time. After further discussion with Dr. Woods her suggested repeating the methylene blue instillation repeating as did Dr. Westbrook. The second time a regular size tampon was used vaginally and a larger amount of methylene blue and sterile water was instilled into the bladder. The patient ambulated for half an hour. The tampon was removed. The distal portion of the tampon was bright blue. The proximal portion near the vaginal opening was white, which appeared to be conclusive evidence of a vesicovaginal fistula. A followup DVP and ROSI done on the morning of 09/17 revealed a DVP of 5.4 and ROSI of 15.5. She had no contractions on the monitor. heart rate was reactive and reassuring during her hospital stay. Urinalysis was dipstick negative. Culture was not sent as a result. This was a catheterized specimen. The patient will follow up in the office on 09/21/2019 for another DVP, NST and office visit. Also of note, the patient remained afebrile throughout her hospital stay including her Friday evaluation. [place]
== END 2019-09-18 07:45 | disposition home or self-care (01) ==
LOC: OPB 15:26 → 4S1 15:26

== ENCOUNTER 2019-11-15 07:35 | Inpatient (IN) ==
[2019-11-15] MEDS ORDERED: OXYTOCIN 30 UNITS/500 ML BAG IV PRN ×3 (08:08→18:03)
[2019-11-15 08:28] LABS: Hematocrit (blood only) 31.1 % (37-47); Hemoglobin 10.3 g/dL (12.0-16.0); Mean Corpuscular Hemoglobin 29.9 pg (25-34); Mean Corpuscular Volume 90.4 fL (80-100); Platelet Count 193 K/uL (130-400); RDW Coefficient of Variation 13.4 % (11.5-14.5); RDW Standard Deviation 43.8 fL (36.4-46.3); Red Blood Count 3.44 M/uL (4.2-5.4); White Blood Count 11.26 K/uL (4.8-10.8)
[2019-11-15 08:40] LABS: Amphetamines+Metham, Urine Neg (Neg); Barbiturates, Urine Neg (Neg); Benzodiazepine, Urine Neg (Neg); Cocaine, Urine Neg (Neg); MDMA (Ecstacy), Urine Neg (Neg); Methadone, Urine Neg (Neg); Opiate, Urine Neg (Neg); Phencyclidine, Urine Neg (Neg)
[2019-11-15 08:54] LABS: Mean Corpuscular Hgb Conc 33.1 g/dL (32-36)
[2019-11-15] MEDS: LACTATED RINGER'S 1,000 ML IV PRN ×3 (09:00→16:04)
--- NOTE | 2019-11-15 09:21 | History & Physical Report ---
Date of Service November 15, 2019 Assessment & Plan (1) Supervision of normal intrauterine in multigravida: 24 yo admitted for induction of labor at 39w0d with recent hx vaginal bleeding with vesicovaginal fistula. - pitocin running, started at 0.06 - received rhogam at 28 wks - is interested in spinal epidural for pain control, will consult anesthesiology for placement - UDS negative today - continued monitoring and tocodynameter monitoring (2) Need for rhogam due to Rh negative mother: (3) Drug dependence affecting , antepartum: (4) Vesicovaginal fistula: History of Present Illness Primary Care Provider: NO PCP 24 yo 39w0d weeks confirmed via ultrasound. Here for induction of labor. On subutex for back pain; last UDS in office + for marijuana on 04/19/19.2 episodes of red Bleeding on 10/29/13 & 11/10 with cramps, seen in office with concern for chronic abruption. Hx vesicovaginal fistula. Has been attending OB appointments regularly. Contractions: none. Fluid or Blood loss: lost mucus plug last week, had "period like" bleeding on 11/11 and that soaked multiple pads. Now only having brown discharge. Movement: active Labs Blood type: O neg Antibody screen: Anti-D RhIg H.3 Hct:31.1 Wbc:11.26 Plt:193 Rubella:immune VDRL/RPR:nonreactive Gonorrhea:negative Chlamydia:negative HIV; negative Hep Bs Ag: neg GBS:negative Glucose tolerance x2:negative Allergies Allergy/AdvReac Type Severity Reaction Status Date / Time ibuprofen [From Motrin] AdvReac Gastrointestinal Verified 11/15/19 08:04 Upset Home Medications Home Medications Medication Instructions Recorded Confirmed Type buprenorphine HCl 8 mg sublingual 8 mg SL BID tab 04/16/19 11/15/19 History tablet prenat.vits,roney,[id number] 1 tab PO DAILY 04/16/19 11/15/19 History Patient History Medical History Anemia Hemorrhagic cystitis (Inactive) Hx of migraines Hx of varicella Needle stick injury in 2017 Opioid abuse hx of abuse- taking subutex 8mg 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 Surgical History S/P wisdom tooth extraction Social History Preferred Language: Lao Communication Ability: Effective Medical Records Analyst Required: No Beliefs That Will Affect Care: None marital status: Single marital status details: Cedric Reyes (24) [phone] Current Living Situation: Family Current Living Situation Comment: Lives with father of baby and son current occupational status: employed current occupation: [employer] Feels Safe at Home: Yes Safety Concerns: Feels Safe At This Time Smoking Status: Former smoker Tobacco Type: cigarettes ; packs per day: 0.5 ; Cigarettes Per Day: 2 ; Second Hand Exposure: No ; Hx Alcohol Use: No Hx Substance Use: Yes (Pt takes Subutex 8 mg BID) substance use type: does not use Childhood Exposure to Second-Hand Smoke: Yes Dental Care, Regularly: Yes Physical Activity Frequency: 3-4 Times per Week Seatbelt Use: always Review of Systems no fever, no chills and no fatigue no cough, no dyspnea and no wheezing no chest pain, no edema and no calf pain no abdominal pain, no nausea, no vomiting, no cramping, no constipation and no diarrhea/loose stools no dysuria and no difficulty urinating + back pain Physical Exam Constitutional: well developed and well nourished Respiratory: normal respiratory effort; no respiratory distress, no labored breathing and no cough Auscultation: no diminished lung sounds, no crackles, no rales, no rhonchi and no wheezes Cardiovascular: Rate/Rhythm: regular rate and regular rhythm Extremities: normal capillary refill; no calf tenderness, no pedal edema and no edema Gastrointestinal (Abdomen): Inspection/Auscultation: + abdomen distended and normal bowel sounds Percussion/Palpation: abdomen nontender and no guarding Genitourinary: Speculum/Bimanual Exam: + uterus enlarged OB Exam Abdomen: + fundal height Fundus: + firm and + relation to umbilicus (high above umbilicus); not tender, + vertex and + estimated weight (6-7 pounds) Manual OB Exam: + cervical dilation (2-3), + cervical effacement 50% and + station -2 OB Exam Monitor Tracing: + external FHT monitor used, + external uterine monitor used, + category I and + normal FHT variability Results & Data Vital Signs (Past 12 Hours) Vital Signs Temp Pulse Resp BP 11/15/19 09:11 91 H 118/57 L 11/15/19 07:58 36.5 C 16 11/15/19 07:56 86 115/59 L Laboratory Results WBC 11.26 K/uL (4.8-10.8) H 11/15/19 08:19 RBC 3.44 M/uL (4.2-5.4) L 11/15/19 08:19 Hgb 10.3 g/dL (12.0-16.0) L 11/15/19 08:19 Hct 31.1 % (37-47) L 11/15/19 08:19 MCV 90.4 fL (80-100) 11/15/19 08:19 MCH 29.9 pg (25-34) 11/15/19 08:19 MCHC 33.1 g/dL (32-36) 11/15/19 08:19 RDW Std Deviation 43.8 fL (36.4-46.3) 11/15/19 08:19 RDW Coeff of Rebeca 13.4 % (11.5-14.5) 11/15/19 08:19 Plt Count 193 K/uL (130-400) 11/15/19 08:19 MPV 9.0 fL (7.4-10.4) 11/15/19 08:19 Urine Opiates Screen Neg (Neg) 11/15/19 08:15 Ur Methadone, Qual Neg (Neg) 11/15/19 08:15 Urine Barbiturates Neg (Neg) 11/15/19 08:15 Ur Phencyclidine (PCP) Neg (Neg) 11/15/19 08:15 U Amphetamin/Meth Scrn Neg (Neg) 11/15/19 08:15 MDMA (Ecstasy) Screen Neg (Neg) 11/15/19 08:15 U Benzodiazepines Scrn Neg (Neg) 11/15/19 08:15 Ur Cocaine Metabolite Neg (Neg) 11/15/19 08:15 U Marijuana (THC) Screen Neg (Neg) 11/15/19 08:15 Monitoring External Monitor HR 130 Moderate variability No accelerations, No decelerations Tocodynamometer No regular contractions Supervising Physician Co-Signing Physician Notes Resident Physician Supervision Note: I interviewed and examined the patient. Discussed with Dr. Calle and agree with findings and plan as documented in the note. Any exceptions or clarifications are listed here: [None] Documented By: Juliana Liz MD, FACOG Resident Activity Tracking Resident Involvement: Resident Care Provided Care Provided: OB Delivery
[2019-11-15] MEDS ORDERED: fentaNYL citrate 100 MCG/2 ML VIAL ONE (11:34)
[2019-11-15] MEDS ORDERED: BUPIVACAINE 0.25% 30 ML VIAL ONE (11:34)
[2019-11-15] MEDS ORDERED: ePHEDrine sulfate 50 MG/ML AMP ONE (11:34)
[2019-11-15] MEDS ORDERED: fentaNYL 2MCG/ML ROPIV 1.25MG/ML 100 ML BAG EPI ONE (11:35)
--- NOTE | 2019-11-15 11:49 | Anesthesiology Consultation ---
Date of Service November 15, 2019 Assessment & Plan (1) Encounter for pre-operative examination: Chart Review Chart Review: Acceptable Risk for Labor Epidural History Height/Weight Height: 5 ft 4 in Weight: 100.244 kg Allergies Allergy/AdvReac Type Severity Reaction Status Date / Time ibuprofen [From Motrin] AdvReac Gastrointestinal Verified 11/15/19 08:04 Upset Medications Home Medications Medication Instructions Recorded Confirmed Last Taken buprenorphine HCl 8 mg sublingual 8 mg SL BID tab 04/16/19 11/15/19 11/15/19 06:45 tablet prenat.vits,roney,[id number] 1 tab PO DAILY 04/16/19 11/15/19 11/14/19 21:00 Active Medications Generic Name Dose Route Start Last Admin Trade Name Freq PRN Reason Stop Dose Admin Lactated Ringer's 1,000 mls @ 125 mls/hr 11/15/19 08:08 11/15/19 11:07 Lr IV 11/17/19 08:07 999 mls/hr .Q8H PRN Infusion L&D Protocol Protocol Oxytocin 30 units in 500 mls @ 7 mls/hr 11/15/19 08:08 11/15/19 10:55 Pitocin IV 11/17/19 08:07 0.42 units/hr .Q24H PRN 7 mls/hr Labor Induction/Augmentation Titration Protocol 0.42 UNITS/HR Past Medical History Medical History Anemia Hemorrhagic cystitis (Inactive) Hx of migraines Hx of varicella Needle stick injury in 2017 Opioid abuse hx of abuse- taking subutex 8mg 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 Past Family History Family History Grandmother (Maternal) Lung cancer Hypertension Multiple kidney stones Unknown Gall bladder disease Mother Hypertension Multiple kidney stones Thyroid disease Denies family history of Colon cancer Ovarian cancer Prostate cancer Myocardial infarction Breast cancer Past Surgical History Surgical History S/P wisdom tooth extraction Social History Smoking Status: Former smoker tobacco type: cigarettes Smoking cigarettes per day: 2 Hx Alcohol Use: No Hx Substance Use: Yes (Pt takes Subutex 8 mg BID) substance use type: does not use Physical Exam Vital Signs Last Vital Signs Temp 36.7 C 11/15/19 10:59 Pulse 84 11/15/19 11:37 Resp 16 11/15/19 10:59 BP 115/67 11/15/19 11:11 Pulse Ox 97 11/15/19 11:37 Testing Laboratory Results 11/15/19 08:19
[2019-11-15] MEDS ORDERED: ePHEDrine sulfate 50 MG/ML AMP IV PRN (12:20)
[2019-11-15] MEDS ORDERED: ONDANSETRON INJ 2 MG/ML 2 ML VIAL IV PRN (12:20)
[2019-11-15] MEDS ORDERED: NALOXONE HCL 1 MG in SODIUM CHLORIDE 0.9% 1000ML 1,000 ML IV PRN (12:20)
[2019-11-15] MEDS ORDERED: fentaNYL 2MCG/ML ROPIV 1.25MG/ML 100 ML BAG EPI PRN (12:20)
[2019-11-15] MEDS ORDERED: NALOXONE HCL 0.4 MG/1 ML VIAL/CARP IV PRN (12:20)
[2019-11-15] MEDS ORDERED: Nursing to Pharmacy Communication SCH (15:15)
[2019-11-15] MEDS ORDERED: IBUPROFEN 600 MG TAB PO PRN (18:03)
[2019-11-15] MEDS ORDERED: DIPHTHERIA/TETANUS/PERTUSSIS 0.5 ML SYR/VIAL IM ONE (18:03)
[2019-11-15] MEDS ORDERED: BENZOCAINE 20% AER SPR 82.5 GM CAN EXT PRN (18:03)
[2019-11-15] MEDS ORDERED: SUPERCREAM 0.870% 15 GM JAR EXT PRN (18:03)
[2019-11-15] MEDS ORDERED: bisacodyL 10 MG SUPP PR PRN (18:03)
[2019-11-15] MEDS ORDERED: HYDROCORTISONE ACETATE 25 MG SUPP PR PRN (18:03)
--- NOTE | 2019-11-15 18:42 | Delivery Summary ---
DATE OF OPERATION: 11/15/2019 The patient is a 24-year-old 2, para 1-0-0-1 white female, who presents for induction of labor because of history of significant vaginal bleeding on 2 episodes. These occurred at 38 weeks. testing was reassuring. She presented at 2-3 cm dilated. Pitocin was begun and following the usual protocol, membranes were ruptured when she was 3 cm dilated. She received epidural analgesia that was effective. She progressed to full dilation and pushed effectively over intact perineum for delivery of a viable female. A loose nuchal cord was reduced at the time of delivery. The rest of the infant delivered easily and was placed on the mother's abdomen for further attention and drying. After 1 minute of life, the cord was clamped and cut and the placenta was then expressed intact with a 3-vessel cord. There was a first degree perineal and vaginal laceration which was repaired with 3-0 chromic in the usual fashion. Estimated blood loss was 250 mL. The was initially evaluated on the baby bed because of poor respiratory effort initially. Her stomach was Delee'ed for approximately 13 mL of clear amniotic fluid, respiratory effort was then much improved.l. Mother and were doing well then after delivery. Post- bleeding was controlled with dilute Pitocin. I attest to the content of the Intraoperative Record and any orders documented therein. Any exceptions are noted below. MTDD
--- NOTE | 2019-11-15 19:31 | Anesthesia Procedure Note ---
Date of Service November 15, 2019 Anesthesia Post Epidural Note Vital Signs Vital Signs: Temp Pulse Resp BP Pulse Ox 36.8 C 86 18 119/60 97 11/15/19 19:01 11/15/19 19:16 11/15/19 19:01 11/15/19 19:16 11/15/19 17:42 Pain Intensity Left Abdomen: Pain Intensity: 4 Notes Mental Status: alert / awake / arousable and participated in evaluation Nausea / Vomiting: adequately controlled Pain: adequately controlled Airway Patency, RR, SpO2: stable & adequate BP & HR: stable & adequate Hydration State: stable & adequate Neuraxial Anesthesia: was administered and sensory block is resolving Anesthetic Complications: no major complications apparent Epidural: Removed without complications and With tip intact
[2019-11-15] MEDS: DOCUSATE SODIUM 100 MG CAP PO SCH (21:00)
[2019-11-15] MEDS: buprenorphine HCL 8 MG SUBL SL SCH (21:00)
--- NOTE | 2019-11-16 07:28 | Obstetrical Progress Note ---
Date of Service November 16, 2019 Assessment & Plan (1) Encounter for care and examination after delivery: continue current care plan will follow up with Dr. Woods for vesicovaginal fistula on Subutex so baby will need to be observed for 4-5 days of life. Day #:: 1 Subjective Ambulation: ambulating normally Voiding: no voiding problems Passing Gas:: Yes Diet Tolerance:: regular diet Lochia:: Small Feeding Type:: breast feeding Review of Systems All systems reviewed & are unremarkable except as noted in HPI & below Physical Exam Constitutional WD/WN, vitals as above Psychiatric A+Ox3, euthymic affect Genitourinary OB Exam Abdomen: + fundal height Fundus: + firm and + relation to umbilicus (at U) Results & Data ([facility]) Vital Signs (Past 12 Hours) Vital Signs Temp Pulse Pulse Resp BP BP Pulse Ox 11/16/19 03:35 98.1 F 88 16 114/66 97 11/15/19 23:15 98.1 F 85 18 121/73 98 11/15/19 21:00 98.1 F 90 18 127/70 98 11/15/19 19:31 100 H 128/67 11/15/19 19:30 98.4 F 18
[2019-11-16 07:43] LABS: Hematocrit (blood only) 32.1 % (37-47); Hemoglobin 10.5 g/dL (12.0-16.0); Mean Corpuscular Hemoglobin 29.7 pg (25-34); Mean Corpuscular Hgb Conc 32.7 g/dL (32-36); Mean Corpuscular Volume 90.7 fL (80-100); Mean Platelet Volume 9.2 fL (7.4-10.4); Platelet Count 206 K/uL (130-400); RDW Coefficient of Variation 13.5 % (11.5-14.5); RDW Standard Deviation 44.9 fL (36.4-46.3); Red Blood Count 3.54 M/uL (4.2-5.4); White Blood Count 11.02 K/uL (4.8-10.8)
[2019-11-16] MEDS: DOCUSATE SODIUM 100 MG CAP PO SCH ×2 (08:39→20:13)
[2019-11-16] MEDS: PRENATAL VITAMIN 1 TAB PO SCH (08:39)
[2019-11-16] MEDS: buprenorphine HCL 8 MG SUBL SL SCH ×2 (08:39→20:13)
[2019-11-16] MEDS: ACETAMINOPHEN 325 MG TAB PO PRN ×2 (11:00→22:07)
[2019-11-16] MEDS ORDERED: bisacodyL 5 MG TABEC PO SCH (20:00)
[2019-11-17 06:18] LABS: Hematocrit (blood only) 33.7 % (37-47); Hemoglobin 11.6 g/dL (12.0-16.0)
--- NOTE | 2019-11-17 06:18 | Obstetrical Progress Note ---
Date of Service November 17, 2019 Assessment & Plan (1) Encounter for care and examination after delivery: continue current care plan will follow up with Dr. Woods for vesicovaginal fistula on Subutex so baby will need to be observed for 4-5 days of life. Home Physical Exam Constitutional WD/WN, vitals as above Gastrointestinal (Abdomen) normal bowel sounds, soft, nontender, no hepatosplenomegaly Ext neg Results & Data ([facility]) Vital Signs (Past 12 Hours) Vital Signs Temp Pulse Resp BP Pulse Ox 11/17/19 00:35 98.1 F 77 14 122/69 95 11/16/19 19:50 97.7 F 80 16 112/70 97
[2019-11-17] MEDS: PRENATAL VITAMIN 1 TAB PO SCH (08:41)
[2019-11-17] MEDS: DOCUSATE SODIUM 100 MG CAP PO SCH ×2 (08:41→20:17)
[2019-11-17] MEDS: buprenorphine HCL 8 MG SUBL SL SCH ×2 (08:41→20:17)
== END 2019-11-17 21:00 | disposition home or self-care (01) | DRG 806 ==
LOC: 4S1 07:35 → 4S2 21:25

== ENCOUNTER 2023-04-30 07:59 | Inpatient (IN) ==
[2023-04-30] MEDS ORDERED: OXYTOCIN 30 UNITS/NSS 30 UNITS/500 ML BAG IV PRN ×3 (08:25→18:55)
[2023-04-30] MEDS ORDERED: LIDOCAINE 1% LOCAL 20 ML VIAL INFIL PRN (08:25)
--- NOTE | 2023-04-30 08:28 | History & Physical Report ---
Date of Service April 30, 2023 Assessment & Plan (1) Encounter for supervision of normal in multigravida: Plan: post dates induction. GBS neg Pitocin Admission and Anticipated Discharge Date Admission Date: April 30, 2023 History of Present Illness Primary Care Provider: ZOIE Lindo post dates induction of labor Current Estimate 04/27/23 Ultrasound #1 40w 2d Other Estimates 05/05/23 LMP (Uncertain) 39w 1d LMP: 07/29/22 : 3 Full term: 2 Premature: 0 Total Number of Induced Abortions: 0 Total Number of Spontaneous Abortions: 0 Ectopics: 0 Multiple births: 0 Number of Living Children: 2 and Delivery Plans Need for Rhogam due to RH Negative Mother -Rhogam given 04/10/23- MK Hx of Vesicovaginal fistula Hx Drug Abuse *Subutex daily Rubella non-immune Allergies Allergy/AdvReac Type Severity Reaction Status Date / Time No Known Allergies Allergy Verified 04/30/23 08:21 Home Medications Medication Instructions Recorded Confirmed Type aripiprazole 5 mg tablet (Abilify) 5 mg PO DAILY 07/31/21 04/25/23 History bupropion HCl 300 mg 24 hr tablet, 300 mg PO DAILY 09/19/21 04/25/23 History extended release hydroxyzine pamoate 50 mg capsule 50 mg PO Q8H PRN sleep/anxiety #15 12/26/21 Rx (Vistaril) caps buprenorphine HCl 8 mg sublingual 12 mg sublingual DAILY 11/08/22 04/25/23 History tablet bupropion HCl 100 mg tablet 150 mg PO DAILY 11/08/22 04/25/23 History escitalopram oxalate 20 mg tablet 30 mg PO DAILY 11/08/22 04/25/23 History (Lexapro) vit 168-iron 27 mg-folic cap PO 11/08/22 04/25/23 History acid 800 mcg-omega3 235 mg capsule (One-A-Day -1) valacyclovir 1 gram tablet 2,000 mg (2 x 1 gram) PO .COMPLEX 01/06/23 04/25/23 Rx (Valtrex) #4 tabs valacyclovir 1 gram tablet 2,000 mg (2 x 1 gram) PO .COMPLEX 01/13/23 04/25/23 Rx #8 tabs Patient History Medical History Anemia Bipolar disorder Hemorrhagic cystitis Hx of migraines Needle stick injury in 2017 Opioid abuse Pap smear abnormality of cervix with LGSIL (~2016) non compliant f/u Stomach ulcer Vesicovaginal fistula required hubbard cath 2 weeks at 30 weeks. Surgical History S/P wisdom tooth extraction Family History Grandmother (Maternal) Lung cancer Hypertension Multiple kidney stones Unknown Gall bladder disease Mother Hypertension Multiple kidney stones Thyroid disease Father Bipolar disorder Grandfather (Paternal) Bipolar disorder Denies family history of Colon cancer Ovarian cancer Prostate cancer Myocardial infarction Breast cancer Social History (Updated 11/08/22 @ 08:10 by Taisha Mallory) Smoking Status: Former smoker Tobacco Type: E-cigarettes / Vaping packs per day: 0.5; Cigarettes Per Day: 2; Second Hand Exposure: No; Do You Dip or Chew Tobacco: No; Hx Alcohol Use: No Hx Substance Use: Yes (Pt takes Subutex 8 mg BID) Preferred Language: Dominican Communication Ability: Effective Mold Checker Required: No Beliefs That Will Affect Care: None marital status: Single marital status details: Cedric Reyes (28) [phone] Current Living Situation: Family Current Living Situation Comment: Lives with fob, 2 kids, 2 dogs. current occupational status: unemployed current occupation: [employer] Feels Safe at Home: Yes Childhood Exposure to Second-Hand Smoke: Yes Diet: regular caffeine: Yes Dental Care, Regularly: Yes Physical Activity Frequency: 3-4 Times per Week Seatbelt Use: always Assistive Devices: None Physical Exam Constitutional: WD/WN, vitals as above well developed and well nourished Respiratory: normal respiratory effort, lungs clear to auscultation normal respiratory effort Cardiovascular: RRR, no murmur, no edema Gastrointestinal (Abdomen): normal bowel sounds, soft, nontender, no hepatosplenomegaly Results & Data Vital Signs (Past 12 Hours) Vital Signs Pulse BP 04/30/23 08:11 83 133/73 Coding Level of Care Code None Diagnoses Encounter for supervision of normal in multigravida Z34.80
[2023-04-30] MEDS: LACTATED RINGER'S 1,000 ML IV PRN ×2 (09:13→13:24)
[2023-04-30 09:37] LABS: Hematocrit (blood only) 29.5 % (37.0-47.0); Hemoglobin 10.1 g/dl (12.0-16.0); Mean Corpuscular Hemoglobin 29.9 pg (25.0-34.0); Mean Corpuscular Hgb Conc 34.2 g/dL (32.0-36.0); Mean Corpuscular Volume 87.3 fL (80.0-100.0); Mean Platelet Volume 9.6 fL (9.4-12.4); Platelet Count 238 K/uL (130-400); RDW Standard Deviation 40.9 fL (36.4-46.3); Red Blood Count 3.38 M/uL (4.20-5.40); White Blood Count 10.37 K/ul (4.8-10.8)
[2023-04-30] MEDS ORDERED: SODIUM CHLORIDE 0.9% 250 ML IV PRN (10:05)
[2023-04-30] MEDS ORDERED: fentaNYL citrate PF 100 MCG/2 ML VIAL ONE (12:34)
[2023-04-30] MEDS ORDERED: ePHEDrine sulfate 50 MG/ML AMP ONE (12:34)
[2023-04-30] MEDS ORDERED: BUPIVACAINE 0.25% PF 30 ML VIAL ONE (12:35)
[2023-04-30] MEDS ORDERED: LIDOCAINE 2%/EPINEPHRINE 1:200,000 20 ML PF ONE (12:35)
[2023-04-30] MEDS ORDERED: SODIUM CHLORIDE 0.9% PF INJ 10 ML VIAL ONE (12:35)
[2023-04-30] MEDS ORDERED: fentANYL 2 MCG/ML BUPIVacaine 0.125%-NSS 100ML BAG ONE (12:35)
[2023-04-30] MEDS ORDERED: ROPIVACAINE 0.5% PF 5 MG/ML 20 ML VIAL EPI PRN (12:39)
[2023-04-30] MEDS ORDERED: SODIUM CHLORIDE 0.9% PF INJ 10 ML VIAL EPI PRN (12:39)
[2023-04-30] MEDS ORDERED: BUPIVACAINE 0.25% PF 30 ML VIAL EPI STA (12:39)
[2023-04-30] MEDS ORDERED: BUPIVACAINE 0.25% PF 30 ML VIAL EPI PRN (12:39)
[2023-04-30] MEDS ORDERED: ePHEDrine sulfate 50 MG/ML AMP IV PRN (12:39)
[2023-04-30] MEDS ORDERED: ONDANSETRON INJ 2 MG/ML 2 ML VIAL IV PRN (12:39)
[2023-04-30] MEDS ORDERED: fentANYL 2 MCG/ML BUPIVacaine 0.125%-NSS 100ML BAG EPI PRN (12:39)
[2023-04-30] MEDS ORDERED: diphenhydrAMINE 50 MG/ML VIAL IV PRN (12:39)
[2023-04-30] MEDS ORDERED: LIDOCAINE 2% MPF LOCAL 5 ML VIAL EPI PRN (12:39)
[2023-04-30] MEDS ORDERED: SODIUM CHLORIDE 0.9% PF INJ 10 ML VIAL EPI STA (12:39)
[2023-04-30] MEDS ORDERED: fentaNYL citrate PF 100 MCG/2 ML VIAL EPI STA (12:39)
[2023-04-30] MEDS ORDERED: fentaNYL citrate PF 100 MCG/2 ML VIAL EPI PRN (12:39)
[2023-04-30] MEDS ORDERED: LIDOCAINE 2%/EPINEPHRINE 1:200,000 20 ML PF EPI STA (12:39)
--- NOTE | 2023-04-30 12:41 | Anesthesiology Consultation ---
Date of Service April 30, 2023 Assessment & Plan (1) Encounter for pre-operative examination: Chart Review Chart Review: Patient NOT seen in Pre Admission Testing and Acceptable Risk for Labor Epidural Consults Requested none History Height/Weight Height: 5 ft 4 in Weight: 117.651 kg Allergies Allergy/AdvReac Type Severity Reaction Status Date / Time No Known Allergies Allergy Verified 04/30/23 08:21 Medications Home Medications Medication Instructions Recorded Confirmed Last Taken bupropion HCl 300 mg 24 hr tablet, 300 mg PO QAM 09/19/21 04/30/23 04/29/23 extended release buprenorphine HCl 8 mg sublingual 12 mg sublingual DAILY 11/08/22 04/30/23 04/30/23 06:00 tablet bupropion HCl 100 mg tablet 150 mg PO QPM 11/08/22 04/30/23 04/29/23 18:00 vit 168-iron 27 mg-folic 1 cap PO DAILY 11/08/22 04/30/23 04/30/23 acid 800 mcg-omega3 235 mg capsule (One-A-Day -1) Active Medications Generic Name Dose Route Start Last Admin Trade Name Freq PRN Reason Stop Dose Admin Oxytocin 30 units in 500 mls @ 14 mls/hr 04/30/23 08:25 04/30/23 12:30 Pitocin 30 Units/Nss IV 05/02/23 08:24 0.84 units/hr .Q24H PRN 14 mls/hr Labor Induction/Augmentation Titration Protocol 0.84 UNITS/HR Lactated Ringer's 1,000 mls @ 125 mls/hr 04/30/23 08:25 04/30/23 12:30 Lr IV 05/02/23 08:24 999 mls/hr .Q8H PRN Titration L&D Protocol Protocol Past Medical History Medical History Bipolar disorder Opioid abuse Vesicovaginal fistula required hubbard cath 2 weeks at 30 weeks. Stomach ulcer Hx of migraines Anemia Needle stick injury in 2017 Pap smear abnormality of cervix with LGSIL (~2015) non compliant f/u Hemorrhagic cystitis Exercise / Class Metabolic Activity II 4-5 Yardwork/Stairs/Walk up hill Past Family History Family History Grandmother (Maternal) Lung cancer Hypertension Multiple kidney stones Unknown Gall bladder disease Mother Hypertension Multiple kidney stones Thyroid disease Father Bipolar disorder Grandfather (Paternal) Bipolar disorder Denies family history of Colon cancer Ovarian cancer Prostate cancer Myocardial infarction Breast cancer Past Surgical History Surgical History S/P wisdom tooth extraction Past Anesthesia History No Hx of Anesthesia Complications and No Family Hx of Anesthesia Complications History of PONV No Hx of PONV and No Hx of Motion Sickness Social History Smoking Status: Former smoker tobacco type: cigarettes Smoking cigarettes per day: 2 Do You Dip or Chew Tobacco: No Hx Alcohol Use: No Hx Substance Use: Yes (Pt takes Subutex) substance use type: does not use Physical Exam Vital Signs Last Vital Signs Temp 36.7 C 04/30/23 11:45 Pulse 72 04/30/23 11:45 Resp 18 04/30/23 11:45 BP 115/59 L 04/30/23 11:45 Testing Laboratory Results 04/30/23 08:57 Blood Type O Negative 04/30/23 08:57 Antibody Screen NEGATIVE 04/30/23 08:57
--- NOTE | 2023-04-30 18:27 | Anesthesia Procedure Note ---
Date of Service April 30, 2023 Anesthesia Epidural Re-Dose Vital Signs Temp Pulse Resp BP Pulse Ox 36.8 C 103 H 18 130/63 99 04/30/23 17:30 04/30/23 18:26 04/30/23 17:30 04/30/23 18:26 04/30/23 18:25 Notes Pain Intensity: 10 Dilatation (cm): 7.5 Effacement (%): 100 Called by nursing to evaluate epidural as the patient is having increased pain. The epidural was re-dosed with the following medications (all medications via epidural route) after negative aspiration of the epidural catheter for CSF/HEME. 10ml of 0.25% bupivacaine After Epidural Re-Dose Mental Status: alert / awake / arousable Pain: improving with treatment Airway Patency, RR, SpO2: stable & adequate BP & HR: stable & adequate
--- NOTE | 2023-04-30 18:53 | Delivery Summary ---
Vaginal Delivery Summary Date of Service April 30, 2023 Vaginal Delivery Summary Spontaneous vaginal delivery patient was induced for postdates Pitocin was started she progressed into a painful contraction pattern and then requested epidural artificial rupture membranes was performed at a later point she progressed to fully dilated and pushed over a grand total of 1 contractions delivering baby in occiput anterior position fluid was clear there was no nuchal cord. Mouth and the nares were suctioned with bulb gentle traction of the baby no excessive force this was an easy delivery live vigorous female infant cord clamped and cut cord gases obtained cord blood obtained placenta removed with gentle traction there was a small 1 cm tear of the vagina which was bleeding which was repaired with 1 simple suture of 3-0 Vicryl sponge instrument counts were correct IV Pitocin was started after the delivery of the placenta and hemostasis improved uterine tone improved sponge Counts correct estimated blood loss 300 mL [facility] Vaginal Delivery Charge Delivery Type Details:
[2023-04-30] MEDS ORDERED: HYDROCORTISONE ACETATE 25 MG SUPP PR PRN (18:55)
[2023-04-30] MEDS ORDERED: ACETAMINOPHEN 325 MG TAB PO PRN (18:55)
[2023-04-30] MEDS ORDERED: BENZOCAINE 20% SPRY 85 APPLN/85 GM CAN EXT PRN (18:55)
[2023-04-30] MEDS ORDERED: bisacodyL 10 MG SUPP PR PRN (18:55)
[2023-04-30] MEDS ORDERED: DIPHTHERIA/TETANUS/PERTUSSIS Vaccine (Tdap, Age 7+yrs) 0.5mL SYR/VL IM ONE (18:55)
--- NOTE | 2023-04-30 19:14 | Anesthesia Procedure Note ---
Date of Service April 30, 2023 Anesthesia Post Epidural Note Vital Signs Vital Signs: Temp Pulse Resp BP Pulse Ox 36.8 C 80 18 122/83 98 04/30/23 17:30 04/30/23 19:00 04/30/23 17:30 04/30/23 19:00 04/30/23 18:30 Notes Mental Status: alert / awake / arousable and participated in evaluation Patient Amnestic to Procedure: No Nausea / Vomiting: adequately controlled Pain: adequately controlled Airway Patency, RR, SpO2: stable & adequate BP & HR: stable & adequate Hydration State: stable & adequate Neuraxial Anesthesia: was administered and sensory block is resolving Anesthetic Complications: no major complications apparent and Pt Satisfied with anesthetic care Epidural: Removed without complications and With tip intact
[2023-04-30] MEDS: buPROPion XL 150 MG TABCR PO SCH (20:49)
[2023-04-30] MEDS: DOCUSATE SODIUM 100 MG CAP PO SCH (21:18)
--- NOTE | 2023-05-01 05:54 | Obstetrical Progress Note ---
Date of Service <Parmjit Horan DO - Last Filed: 05/01/23 07:10> May 01, 2023 Assessment & Plan <Parmjit Horan DO - Last Filed: 05/01/23 07:10> (1) care following vaginal delivery: Plan 27 year old , PPD#1: Eating well, voiding well, ambulating well Vitals reviewed, WNL Pain well controlled without analgesics Routine care - OOB, ambulation, diet progression as tolerated Will have 6 week follow up with Dr. Swartz <Blanquita Swartz MD, FACOG - Last Filed: 05/01/23 08:05> (1) care following vaginal delivery: Subjective <Parmjit Horan - Last Filed: 05/01/23 07:10> Ambulation: ambulating normally Voiding: no voiding problems Passing Gas:: Yes Diet Tolerance:: regular diet Lochia:: Moderate Feeding Type:: breast feeding pain well controlled without analgesics Review of Systems -Denies fever or chills -Denies dyspnea, chest pain, or palpitations -Denies dysuria -Denies headache or changes in vision Physical Exam <Parmjit Horan - Last Filed: 05/01/23 07:10> General: Alert and oriented. No acute distress Cardiac: Regular rate and rhythm, no murmurs appreciated Respiratory: Lungs clear to auscultation bilaterally, No increased work of breathing Abdominal: Soft, non-tender, non-distended. Bowel sounds present. Uterus: Uterine fundus firm, palpable below umbilicus Extremities: No lower extremity edema, calves non-tender bilaterally Results & Data <Parmjit Horan - Last Filed: 05/01/23 07:10> Vital Signs (Past 12 Hours) Vital Signs Temp Pulse Pulse Resp BP BP Pulse Ox 05/01/23 04:00 36.7 C 73 18 122/70 04/30/23 23:45 36.9 C 84 16 129/84 04/30/23 21:05 36.7 C 86 18 127/74 04/30/23 20:46 85 04/30/23 20:46 122/76 04/30/23 20:45 18 04/30/23 20:31 81 04/30/23 20:31 125/87 04/30/23 20:15 18 04/30/23 20:15 71 04/30/23 20:15 130/67 04/30/23 20:01 93 H 04/30/23 20:01 134/79 04/30/23 19:45 18 04/30/23 19:30 18 04/30/23 19:30 88 04/30/23 19:30 121/72 04/30/23 19:15 18 04/30/23 19:15 84 04/30/23 19:15 123/75 04/30/23 19:00 36.4 C L 18 04/30/23 19:00 04/30/23 19:00 80 04/30/23 19:00 122/83 04/30/23 18:45 18 04/30/23 18:44 93 H 04/30/23 18:44 137/85 04/30/23 18:41 109 H 04/30/23 18:41 126/67 04/30/23 18:38 98 H 04/30/23 18:38 114/56 L 04/30/23 18:36 98 H 04/30/23 18:36 141/63 H 04/30/23 18:32 98 H 04/30/23 18:32 131/76 04/30/23 18:30 98 04/30/23 18:30 80 04/30/23 18:29 111 H 04/30/23 18:29 117/69 04/30/23 18:26 103 H 04/30/23 18:26 130/63 04/30/23 18:25 99 04/30/23 18:25 105 H 04/30/23 18:23 73 04/30/23 18:23 131/80 04/30/23 18:20 98 04/30/23 18:20 72 04/30/23 18:20 76 04/30/23 18:20 120/72 04/30/23 18:17 85 04/30/23 18:17 131/85 04/30/23 18:16 87 L 04/30/23 18:16 80 04/30/23 18:15 96 04/30/23 18:15 80 04/30/23 18:10 100 04/30/23 18:10 95 H 04/30/23 18:05 97 04/30/23 18:05 73 04/30/23 18:00 96 04/30/23 18:00 79 04/30/23 17:58 80 04/30/23 17:58 119/64 04/30/23 17:55 97 04/30/23 17:55 79 O2 Del Method 05/01/23 04:00 Room Air 04/30/23 23:45 Room Air 04/30/23 21:05 Room Air 04/30/23 20:46 04/30/23 20:46 04/30/23 20:45 04/30/23 20:31 04/30/23 20:31 04/30/23 20:15 04/30/23 20:15 04/30/23 20:15 04/30/23 20:01 04/30/23 20:01 04/30/23 19:45 04/30/23 19:30 04/30/23 19:30 04/30/23 19:30 04/30/23 19:15 04/30/23 19:15 04/30/23 19:15 04/30/23 19:00 04/30/23 19:00 Room Air 04/30/23 19:00 04/30/23 19:00 04/30/23 18:45 04/30/23 18:44 04/30/23 18:44 04/30/23 18:41 04/30/23 18:41 04/30/23 18:38 04/30/23 18:38 04/30/23 18:36 04/30/23 18:36 04/30/23 18:32 04/30/23 18:32 04/30/23 18:30 04/30/23 18:30 04/30/23 18:29 04/30/23 18:29 04/30/23 18:26 04/30/23 18:26 04/30/23 18:25 04/30/23 18:25 04/30/23 18:23 04/30/23 18:23 04/30/23 18:20 04/30/23 18:20 04/30/23 18:20 04/30/23 18:20 04/30/23 18:17 04/30/23 18:17 04/30/23 18:16 04/30/23 18:16 04/30/23 18:15 04/30/23 18:15 04/30/23 18:10 04/30/23 18:10 04/30/23 18:05 04/30/23 18:05 04/30/23 18:00 04/30/23 18:00 04/30/23 17:58 04/30/23 17:58 04/30/23 17:55 04/30/23 17:55 Supervising Physician <Blanquita Swartz MD, FACOG - Last Filed: 05/01/23 08:05> Co-Signing Physician Notes Resident Physician Supervision Note: I was present with Dr. Horan during the history and exam. I discussed the case with the resident and agree with the findings and plan as documented in the note. Any exceptions or clarifications are listed here: [None] Documented By: Blanquita Swartz MD, FACOG Resident Activity Tracking <Parmjit Horan DO - Last Filed: 05/01/23 07:10> Resident Involvement: Resident Care Provided Care Provided: OB Delivery
[2023-05-01 06:32] LABS: Hematocrit (blood only) 27.7 % (37.0-47.0); Hemoglobin 9.6 g/dl (12.0-16.0); Mean Corpuscular Hemoglobin 29.9 pg (25.0-34.0); Mean Corpuscular Hgb Conc 34.7 g/dL (32.0-36.0); Mean Corpuscular Volume 86.3 fL (80.0-100.0); Mean Platelet Volume 9.5 fL (9.4-12.4); Platelet Count 221 K/uL (130-400); RDW Coefficient of Variation 12.8 % (11.5-14.5); RDW Standard Deviation 40.3 fL (36.4-46.3); Red Blood Count 3.21 M/uL (4.20-5.40); White Blood Count 11.45 K/ul (4.8-10.8)
[2023-05-01] MEDS ORDERED: MEASLES, MUMPS & RUBELLA VIRUS VACCINE (MMR) VIAL SQ ONE (09:11)
[2023-05-01] MEDS: PRENATAL VITAMIN 1 TAB PO SCH (10:04)
[2023-05-01] MEDS: DOCUSATE SODIUM 100 MG CAP PO SCH ×2 (10:05→20:55)
[2023-05-01] MEDS: IBUPROFEN 600 MG TAB PO PRN ×2 (10:05→17:59)
[2023-05-01] MEDS: buPROPion XL 300 MG TABCR PO SCH (10:05)
[2023-05-01] MEDS: buprenorphine HCL 8 MG SUBL SL SCH (13:47)
[2023-05-01] MEDS: buprenorphine HCL 2 MG SUBL SL SCH (13:47)
[2023-05-01] MEDS ORDERED: bisacodyL 5 MG TABEC PO SCH (20:00)
[2023-05-01] MEDS: buPROPion XL 150 MG TABCR PO SCH (20:30)
--- NOTE | 2023-05-02 05:30 | Obstetrical Progress Note ---
Date of Service <Parmjit Aung - Last Filed: 05/02/23 06:23> May 02, 2023 Assessment & Plan <Parmjit Horan - Last Filed: 05/02/23 06:23> (1) care following vaginal delivery: Plan 27 year old , PPD#2: Eating well, voiding well, ambulating well Vitals reviewed, WNL Pain well controlled with Motrin Routine care - OOB, ambulation, diet progression as tolerated Will have 6 week follow up with Dr. Swartz <Claudia Shirley MD, FACOG - Last Filed: 05/02/23 06:37> (1) care following vaginal delivery: Subjective <Parmjit Horan DO - Last Filed: 05/02/23 06:23> Ambulation: ambulating normally Voiding: no voiding problems Passing Gas:: Yes Diet Tolerance:: regular diet Lochia:: Small Feeding Type:: breast feeding pain well controlled with Motrin Review of Systems -Denies fever or chills -Denies dyspnea, chest pain, or palpitations -Denies dysuria -Denies headache or changes in vision Physical Exam <Parmjit Horan DO - Last Filed: 05/02/23 06:23> General: Alert and oriented. No acute distress Cardiac: Regular rate and rhythm, no murmurs appreciated Respiratory: Lungs clear to auscultation bilaterally, No increased work of breathing Abdominal: Soft, non-tender, non-distended. Bowel sounds present. Uterus: Uterine fundus firm, palpable below umbilicus Extremities: No lower extremity edema, calves non-tender bilaterally Results & Data <Parmjit Horan DO - Last Filed: 05/02/23 06:23> Vital Signs (Past 12 Hours) Vital Signs Temp Pulse Resp BP Pulse Ox O2 Del Method 05/01/23 22:35 36.9 C 87 18 112/70 95 Room Air 05/01/23 19:14 36.7 C 71 18 130/74 97 Room Air Supervising Physician <Claudia Shirley MD, FACOG - Last Filed: 05/02/23 06:37> Co-Signing Physician Notes Resident Physician Supervision Note: I was present with Dr. Horan during the history and exam. I discussed the case with the resident and agree with the findings and plan as documented in the note. Any exceptions or clarifications are listed here: stable, doing well. eating, voiding ambulating, has to void now. . will go to nesting. abd soft ff at u, nt, ext nt calves. ppd#2 s/p . routine care. dc home, will go to nesting, instructions reviewed f/u 6wk pp check. Documented By: Claudia Shirley MD, FACOG Resident Activity Tracking <Parmjit Horan DO - Last Filed: 05/02/23 06:23> Resident Involvement: Resident Care Provided Care Provided: OB Delivery
[2023-05-02 07:36] LABS: Hemoglobin 9.5 g/dl (12.0-16.0)
[2023-05-02] MEDS: buPROPion XL 300 MG TABCR PO SCH (09:03)
[2023-05-02] MEDS: DOCUSATE SODIUM 100 MG CAP PO SCH (09:03)
[2023-05-02] MEDS: IBUPROFEN 600 MG TAB PO PRN (09:04)
[2023-05-02] MEDS: buprenorphine HCL 8 MG SUBL SL SCH (09:04)
[2023-05-02] MEDS: buprenorphine HCL 2 MG SUBL SL SCH (09:04)
[2023-05-02] MEDS: PRENATAL VITAMIN 1 TAB PO SCH (09:04)
== END 2023-05-02 18:32 | disposition home or self-care (01) | DRG 768 ==
LOC: 4S1 07:59 → 4E2 20:55